=== PATIENT | female | born 1945 ===

== ENCOUNTER 2020-09-15 11:08 | Inpatient (IN) ==
[~2020-09-15 11:08] MED LIST: DIAZEPAM 5 MG TABLET PO ONE; MAGNESIUM SULF RIDER 2 GM in PREMIX 1 EACH IV PRN; POTASSIUM CHLORIDE RIDER 10 MEQ in PREMIX 1 EACH IV PRN; SODIUM CHLORIDE 0.9% 1,000 ML IV SCH; diphenhydrAMINE CAP 25 MG CAPSULE PO ONE
[2020-09-15] MEDS ORDERED: diphenhydrAMINE CAP 25 MG CAPSULE ONE (12:22)
[2020-09-15] MEDS ORDERED: DIAZEPAM 5 MG TABLET ONE (12:22)
[2020-09-15 12:39] LABS: Calcium 8.3 MG/DL (8.5-10.1); Osmolality,Calculated 288.5 MOS/KG (273-304)
[2020-09-15] MEDS ORDERED: MIDAZOLAM 2 MG/2 ML VIAL ONE (13:24)
[2020-09-15] MEDS ORDERED: fentaNYL 100 MCG/2 ML VIAL ONE (13:25)
[2020-09-15] MEDS ORDERED: LIDOCAINE 1% 20 ML VIAL ONE (13:28)
[2020-09-15] MEDS ORDERED: DEXTROSE 50% 25 GM/50 ML VIAL IV PRN (14:19)
[2020-09-15] MEDS ORDERED: GLUCAGON 1 MG VIAL IM PRN (14:19)
[2020-09-15] MEDS ORDERED: MAGNESIUM SULF RIDER 4 GM in PREMIX 1 EACH IV PRN (14:28)
[2020-09-15] MEDS ORDERED: ZALEPLON 5 MG CAPSULE PO PRN (14:28)
[2020-09-15] MEDS ORDERED: ONDANSETRON 4 MG/2 ML VIAL IV PRN (14:28)
[2020-09-15] MEDS ORDERED: MAGNESIUM SULF RIDER 2 GM in PREMIX 1 EACH IV PRN (14:28)
[2020-09-15] MEDS ORDERED: POTASSIUM CHLORIDE 20 MEQ TABLET PO PRN (14:28)
[2020-09-15] MEDS ORDERED: ALUMINUM/MAGNES/SIMETH MAX STR 30 ML UDCUP PO PRN (14:28)
[2020-09-15] MEDS ORDERED: ACETAMINOPHEN 325 MG TABLET PO PRN (14:28)
[2020-09-15] MEDS ORDERED: ALBUTEROL 2.5 MG/3 ML NEB RESP TX PRN (14:36)
[2020-09-15] MEDS ORDERED: INFLUENZA VIRUS VACCINE 0.5 ML SYRINGE IM ONE (15:25)
[2020-09-15] MEDS ORDERED: PNEUMOCOCCAL VACCINE (13 VALENT) 0.5 ML SYRINGE IM ONE (15:25)
[2020-09-15] MEDS: DEXTROSE 5% NACL 0.45% 1,000 ML IV SCH (16:51)
[2020-09-15] MEDS: INSULIN REGULAR 100 UNIT/ML SUBCUT SCH ×2 (17:28→23:04)
[2020-09-15] MEDS ORDERED: ENOXAPARIN 40 MG/0.4 ML SYRINGE SUBCUT SCH (21:00)
[2020-09-15] MEDS: ROSUVASTATIN 20 MG TABLET PO SCH (22:44)
[2020-09-15] MEDS: glyBURIDE 5 MG TABLET PO SCH (22:45)
[2020-09-15] MEDS: carvediloL 12.5 MG TABLET PO SCH (22:45)
[2020-09-15] MEDS: DOCUSATE SODIUM 100 MG CAPSULE PO SCH (22:45)
[2020-09-15] MEDS: OLOPATADINE 0.1% OPH SOLN 5 ML BOTTLE BOTH EYES SCH (22:46)
[2020-09-16] MEDS: DEXTROSE 5% NACL 0.45% 1,000 ML IV SCH ×3 (04:31→15:31)
[2020-09-16 05:40] LABS: Basophils % 0.3 % (0.0-0.8); Eosinophils # 0.2 10*3/uL (0.0-0.87); Eosinophils % 3.5 % (0.00-10.9); Hematocrit 34.1 VOL% (35.7-47.0); Hemoglobin 11.4 GM/DL (12.0-16.0); Immature Granulocytes % 0.2 %; Immature Granulocytes Absolute 0.01 #; Lymphocytes % 31.6 % (21.3-54.2); Mean Corpuscular HGB Conc 33.4 GM/DL (32-36); Mean Corpuscular Volume 83.6 FL (87-102); Mean Platelet Volume 9.9 FL (9.6-12.0); Monocytes % 7.4 % (1.7-12.7); Platelet Count 169 T/CUMM (130-400); Red Blood Count 4.08 MC/CUMM (3.8-5.5); Red Cell Distribution Width 13.2 % (9.3-17.3); White Blood Count 6.4 T/CUMM (4-12)
[2020-09-16 05:56] LABS: Alanine Aminotransferase 13 U/L (13-56); Albumin 2.1 G/DL (3.4-5.0); Alkaline Phosphatase 96 U/L (45-117); Aspartate Amino Transferase 17 U/L (0-37); Bilirubin,Total < 0.39 MG/DL (0.2-1.0); Blood Urea Nitrogen 33 MG/DL (7-18); Calcium 7.6 MG/DL (8.5-10.1); Estimated Glom Filtration Rate 32 ML/MIN; Glucose 201 MG/DL (74-106); Osmolality,Calculated 293.3 MOS/KG (273-304); Total Protein 5.3 G/DL (6.4-8.3)
[2020-09-16] MEDS: LEVOTHYROXINE 50 MCG TABLET PO SCH (06:04)
[2020-09-16] MEDS: INSULIN REGULAR 100 UNIT/ML SUBCUT SCH ×4 (08:15→22:11)
[2020-09-16] MEDS: lisinopriL 20 MG TABLET PO SCH (10:14)
[2020-09-16] MEDS: glyBURIDE 5 MG TABLET PO SCH ×2 (10:14→22:03)
[2020-09-16] MEDS: MONTELUKAST 10 MG TABLET PO SCH (10:14)
[2020-09-16] MEDS: PANTOPRAZOLE 40 MG TABLET PO SCH (10:14)
[2020-09-16] MEDS: carvediloL 12.5 MG TABLET PO SCH ×2 (10:14→22:03)
[2020-09-16] MEDS: DOCUSATE SODIUM 100 MG CAPSULE PO SCH ×2 (10:14→22:03)
[2020-09-16] MEDS: FUROSEMIDE 40 MG TABLET PO SCH (10:15)
[2020-09-16] MEDS: POTASSIUM CHLORIDE 20 MEQ TABLET PO SCH (10:15)
[2020-09-16] MEDS: FEXOFENADINE 180 MG TABLET PO SCH (10:16)
[2020-09-16] MEDS: OLOPATADINE 0.1% OPH SOLN 5 ML BOTTLE BOTH EYES SCH ×2 (10:16→22:11)
[2020-09-16] MEDS: NON-FORMULARY MEDICATION (Fluticasone Furoate-Vilanterol [Breo Ellipta] 200-25 mcg/dose Bl INH SCH (10:32)
[2020-09-16] MEDS ORDERED: GLUCAGON 1 MG VIAL IM PRN (10:49)
[2020-09-16] MEDS ORDERED: DEXTROSE 50% 25 GM/50 ML VIAL IV PRN (10:49)
[2020-09-16] MEDS ORDERED: VANCOMYCIN INJ 1,000 MG in SODIUM CHLORIDE 0.9% 250 ML IV ONE (11:05)
[2020-09-16 11:36] LABS: ABG Base Excess -1.6 MMOL/L (-2.5-2.5); ABG Oxygen Saturation 95.6 % (95-100); ABG PCO2 42.9 MM HG (35-48); ABG PH 7.355 (7.35-7.45); ABG PO2 78.5 MM HG (80-95); ABG TCO2 21.3 MMOL/L (23-27)
[2020-09-16] MEDS ORDERED: hydrALAZINE 20 MG/1 ML VIAL IV PRN (12:48)
[2020-09-16] MEDS: CHLORHEXIDINE 4% SOLN 118 ML BOTTLE TOP SCH ×2 (14:10→22:03)
[2020-09-16] MEDS: ASCORBIC ACID 500 MG TABLET PO SCH ×2 (14:33→22:03)
[2020-09-16] MEDS: hydrALAZINE 25 MG TABLET PO SCH ×3 (14:33→22:03)
[2020-09-16] MEDS ORDERED: ALPRAZolam 0.25 MG TABLET PO PRN (14:43)
[2020-09-16] MEDS ORDERED: PAPAVERINE 60 MG/2 ML VIAL ONE (14:44)
[2020-09-16] MEDS ORDERED: VANCOMYCIN 500 MG VIAL ONE (14:45)
[2020-09-16] MEDS ORDERED: VANCOMYCIN 1,000 MG VIAL ONE (14:45)
[2020-09-16] MEDS: ROSUVASTATIN 20 MG TABLET PO SCH (22:03)
[2020-09-16] MEDS: CHLORHEXIDINE 0.12% ORAL RINSE 60 ML BOTTLE SWISH/SPIT SCH (22:11)
[2020-09-17] MEDS: DEXTROSE 5% NACL 0.45% 1,000 ML IV SCH ×2 (00:36→05:36)
[2020-09-17] MEDS ORDERED: VANCOMYCIN INJ 1,000 MG in SODIUM CHLORIDE 0.9% 250 ML IV ONE (05:00)
[2020-09-17] MEDS ORDERED: SODIUM CHLORIDE 0.9% 1,000 ML IV SCH (05:00)
[2020-09-17] MEDS ORDERED: DIAZEPAM 5 MG TABLET PO ONE (06:00)
[2020-09-17] MEDS ORDERED: SUFentanil 250 MCG/5 ML AMP ONE (06:03)
[2020-09-17] MEDS ORDERED: MIDAZOLAM 10 MG/2 ML VIAL ONE (06:03)
[2020-09-17] MEDS: LEVOTHYROXINE 50 MCG TABLET PO SCH (06:28)
[2020-09-17] MEDS ORDERED: SODIUM BICARBONATE 50 MEQ/50 ML VIAL IV ONE ×3 (07:28→12:40)
[2020-09-17] MEDS ORDERED: POTASSIUM CHLORIDE RIDER 100 ML IV ONE (07:29)
[2020-09-17] MEDS ORDERED: PHENYLEPHRINE DRIP 40 MG/250 ML PREMIX IV ONE (07:29)
[2020-09-17] MEDS ORDERED: CALCIUM CHLORIDE 1,000 MG/10 ML SYRINGE IV ONE (07:29)
[2020-09-17] MEDS ORDERED: NITROPRUSSIDE 50 MG/2 ML VIAL ONE (07:29)
[2020-09-17 07:32] LABS: ABG Base Excess -3.3 MMOL/L (-2.5-2.5); ABG HCO3 21.7 MMOL/L (20-26); ABG PCO2 36.5 MM HG (35-48); ABG PH 7.376 (7.35-7.45); ABG TCO2 19.4 MMOL/L (23-27); Glucose Heart Surgery 150 MG/DL (74-106); Hematocrit Heart Surgery 31.9 PERCENT (37-47); Hemoglobin Heart Surgery 10.3 G/DL (12.0-16.0); Ionized Calcium Arterial 1.08 MMOL/L (1.21-1.46); PCO2 Patient Temp Arterial 36.5 MMHG; PH Patient Temp Arterial 7.376; Patient Temperature 37 CELCIUS; Potassium Heart/CVR 3.8 MMOL/L (3.5-5.1); Sodium Heart/CVR 139 MMOL/L (135-145)
[2020-09-17 08:05] LABS: Amorphous Crystals,Urine Occasional /HPF (Few); Bilirubin,Urine Negative (Negative); Blood, Urine Negative (Negative); Glucose,Urine (UA) 50 mg/dL (Negative); Ketones,Urine Negative (Negative); Mucus,Urine Occasional /LPF (Occasional); Nitrite,Urine Negative (Negative); Protein,Urine 100 MG/DL; RBC,Urine 2 /HPF (0-4); Urine Appearance Slightly Hazy (Clear); Urine Color Yellow (Yellow); Urine Specific Gravity 1.017 (1.001-1.035); Urine Urobilinogen < 2.0 EU/DL (0.2-1.0)
[2020-09-17] MEDS ORDERED: ePHEDrine 50 MG/ML VIAL ONE (08:40)
[2020-09-17] MEDS: FEXOFENADINE 180 MG TABLET PO SCH (09:03)
[2020-09-17] MEDS: carvediloL 12.5 MG TABLET PO SCH (09:03)
[2020-09-17] MEDS: glyBURIDE 5 MG TABLET PO SCH (09:03)
[2020-09-17] MEDS: DOCUSATE SODIUM 100 MG CAPSULE PO SCH (09:03)
[2020-09-17] MEDS: hydrALAZINE 25 MG TABLET PO SCH (09:03)
[2020-09-17] MEDS: INSULIN REGULAR 100 UNIT/ML SUBCUT SCH ×2 (09:03→13:18)
[2020-09-17] MEDS: CHLORHEXIDINE 0.12% ORAL RINSE 60 ML BOTTLE SWISH/SPIT SCH ×2 (09:04→21:50)
[2020-09-17] MEDS: CHLORHEXIDINE 4% SOLN 118 ML BOTTLE TOP SCH (09:04)
[2020-09-17] MEDS: ASCORBIC ACID 500 MG TABLET PO SCH (09:04)
[2020-09-17] MEDS: PANTOPRAZOLE 40 MG TABLET PO SCH (09:04)
[2020-09-17] MEDS: NON-FORMULARY MEDICATION (Fluticasone Furoate-Vilanterol [Breo Ellipta] 200-25 mcg/dose Bl INH SCH (09:04)
[2020-09-17] MEDS: OLOPATADINE 0.1% OPH SOLN 5 ML BOTTLE BOTH EYES SCH (09:04)
[2020-09-17] MEDS: POTASSIUM CHLORIDE 20 MEQ TABLET PO SCH (09:04)
[2020-09-17] MEDS: MONTELUKAST 10 MG TABLET PO SCH (09:04)
[2020-09-17] MEDS: lisinopriL 20 MG TABLET PO SCH (09:04)
[2020-09-17] MEDS: FUROSEMIDE 40 MG TABLET PO SCH (09:04)
[2020-09-17] MEDS ORDERED: CALCIUM CHLORIDE 1,000 MG/10 ML VIAL IV ONE ×2 (09:08→12:40)
[2020-09-17] MEDS ORDERED: HEPARIN 10,000 UNIT/10 ML VIAL ONE ×2 (09:08→10:34)
[2020-09-17] MEDS ORDERED: AMINOCAPROIC ACID 5,000 MG/20 ML VIAL ONE (09:08)
[2020-09-17] MEDS ORDERED: ALBUMIN 5% 12.5 GM/250 ML VIAL IV ONE (09:08)
[2020-09-17] MEDS ORDERED: VECURONIUM 10 MG VIAL IV ONE (09:08)
[2020-09-17] MEDS ORDERED: SODIUM CHLORIDE 0.9% 250 ML IV ONE ×2 (09:08→12:40)
[2020-09-17] MEDS ORDERED: SODIUM CHLORIDE 0.9% 100 ML IV ONE (09:08)
[2020-09-17] MEDS ORDERED: HEPARIN/NACL 0.9% 2 UNITS/ML 500 ML IV ONE ×2 (09:08→12:28)
[2020-09-17] MEDS ORDERED: LIDOCAINE 2% 5 ML VIAL ONE ×2 (09:08→10:33)
[2020-09-17] MEDS ORDERED: PHENYLEPHRINE DRIP 20 MG/250 ML PREMIX IV ONE (09:08)
[2020-09-17] MEDS ORDERED: LACTATED RINGERS 1,000 ML IV ONE (09:08)
[2020-09-17] MEDS ORDERED: SODIUM CHLORIDE 0.9% 1,000 ML IV ONE (09:09)
[2020-09-17 09:17] LABS: PCO2 Patient Temp Venous 31.3 MM HG; PH Patient Temp Venous 7.438; PO2 Patient Temp Venous 40.5 MM HG; Potassium Heart/CVR 4.8 MMOL/L (3.5-5.1); VBG Base Excess -2.4 MEQ/L (0-4); VBG HCO3 22.2 MEQ/L (24-28); VBG Oxygen Saturation 85.7 %; VBG PCO2 36.2 MMHG (41-51); VBG PH 7.395; VBG PO2 49.6 MMHG (17-40)
[2020-09-17 09:19] LABS: Hematocrit Heart Surgery 17.9 PERCENT (37-47); Hemoglobin Heart Surgery 5.7 G/DL (12.0-16.0)
[2020-09-17 09:45] LABS: Hematocrit Heart Surgery 22.9 PERCENT (37-47); Hemoglobin Heart Surgery 7.3 G/DL (12.0-16.0); PCO2 Patient Temp Venous 30.6 MM HG; PH Patient Temp Venous 7.495; PO2 Patient Temp Venous 42.6 MM HG; Potassium Heart/CVR 4.7 MMOL/L (3.5-5.1); VBG Base Excess 0.7 MEQ/L (0-4); VBG Oxygen Saturation 90.1 %; VBG PCO2 35.3 MMHG (41-51); VBG PH 7.45; VBG PO2 52.2 MMHG (17-40)
[2020-09-17 10:19] LABS: Hematocrit Heart Surgery 24.2 PERCENT (37-47); Hemoglobin Heart Surgery 7.8 G/DL (12.0-16.0); PCO2 Patient Temp Venous 32.1 MM HG; PH Patient Temp Venous 7.474; PO2 Patient Temp Venous 38.2 MM HG; VBG Base Excess 0.3 MEQ/L (0-4); VBG HCO3 24.5 MEQ/L (24-28); VBG Oxygen Saturation 78.4 %; VBG PCO2 32.1 MMHG (41-51); VBG PH 7.474; VBG PO2 38.2 MMHG (17-40)
[2020-09-17] MEDS ORDERED: MANNITOL 100 GM/500 ML BAG IV ONE (10:33)
[2020-09-17] MEDS ORDERED: methylPREDNISolone SOD SUC 1,000 MG/8 ML VIAL ONE (10:34)
[2020-09-17] MEDS ORDERED: DEXTROSE 5% KCL 20 MEQ 20 MEQ/1,000 ML BAG IV ONE (10:34)
[2020-09-17] MEDS ORDERED: FUROSEMIDE 20 MG/2 ML VIAL ONE (10:34)
[2020-09-17] MEDS ORDERED: PROTAMINE SULFATE 250 MG/25 ML VIAL IV ONE (10:34)
[2020-09-17] MEDS ORDERED: MAGNESIUM SULFATE 5 GM/10 ML VIAL IV ONE (10:34)
[2020-09-17] MEDS ORDERED: ALBUMIN 25% 25 GM/100 ML VIAL IV ONE (10:34)
[2020-09-17 10:48] LABS: Hematocrit Heart Surgery 25.1 PERCENT (37-47); Hemoglobin Heart Surgery 8.1 G/DL (12.0-16.0); PCO2 Patient Temp Venous 37.2 MM HG; PH Patient Temp Venous 7.388; PO2 Patient Temp Venous 45.4 MM HG; Potassium Heart/CVR 4.8 MMOL/L (3.5-5.1); VBG Base Excess -2.2 MEQ/L (0-4); VBG HCO3 22.3 MEQ/L (24-28); VBG Oxygen Saturation 81.3 %; VBG PCO2 37.2 MMHG (41-51); VBG PH 7.388; VBG PO2 45.4 MMHG (17-40)
[2020-09-17 11:42] LABS: ABG Base Excess -1.6 MMOL/L (-2.5-2.5); ABG HCO3 22.6 MMOL/L (20-26); ABG Oxygen Saturation 98.8 % (95-100); ABG PCO2 35.5 MM HG (35-48); ABG PH 7.422 (7.35-7.45); ABG PO2 333.8 MM HG (80-95); ABG TCO2 23.7 MMOL/L (23-27); Glucose Heart Surgery 251 MG/DL (74-106); Hemoglobin Heart Surgery 8.3 G/DL (12.0-16.0); Ionized Calcium Arterial 1.09 MMOL/L (1.21-1.46); PCO2 Patient Temp Arterial 35.5 MMHG; PH Patient Temp Arterial 7.422; PO2 Patient Temp Arterial 333.8 MM HG; Patient Temperature 37 CELCIUS; Potassium Heart/CVR 4.4 MMOL/L (3.5-5.1); Sodium Heart/CVR 133 MMOL/L (135-145)
[2020-09-17] MEDS ORDERED: DEXTROSE 50% 25 GM/50 ML VIAL IV PRN ×2 (11:58)
[2020-09-17] MEDS ORDERED: CALCIUM CHLORIDE 1,000 MG/10 ML SYRINGE IV PRN (11:58)
[2020-09-17] MEDS ORDERED: INSULIN REGULAR 100 UNIT/ML IV ONE (11:58)
[2020-09-17] MEDS ORDERED: NITROPRUSSIDE 100 MG in DEXTROSE 5% 250 ML IV PRN (11:58)
[2020-09-17] MEDS ORDERED: POTASSIUM CHLORIDE RIDER 10 MEQ in PREMIX 1 EACH IV PRN (11:58)
[2020-09-17] MEDS ORDERED: INSULIN REGULAR 100 UNIT/ML IV PRN (11:58)
[2020-09-17] MEDS ORDERED: ONDANSETRON 4 MG/2 ML VIAL IV PRN (11:58)
[2020-09-17] MEDS ORDERED: MORPHINE 4 MG/1 ML VIAL IV PRN (11:58)
[2020-09-17] MEDS ORDERED: VECURONIUM 10 MG VIAL IV PRN ×2 (11:58)
[2020-09-17] MEDS ORDERED: PHENYLEPHRINE DRIP 40 MG/250 ML PREMIX IV PRN (11:58)
[2020-09-17] MEDS ORDERED: MAGNESIUM SULF RIDER 2 GM in PREMIX 1 EACH IV PRN (11:58)
[2020-09-17] MEDS ORDERED: MIDAZOLAM 2 MG/2 ML VIAL IV PRN (11:58)
[2020-09-17] MEDS ORDERED: MAGNESIUM SULF RIDER 4 GM in PREMIX 1 EACH IV PRN (11:58)
[2020-09-17] MEDS ORDERED: LACTATED RINGERS 250 ML IV PRN (11:58)
[2020-09-17] MEDS ORDERED: CHLORHEXIDINE 4% SOLN 118 ML BOTTLE TOP PRN (11:58)
[2020-09-17] MEDS ORDERED: DOBUTamine 500 MG/250 ML PREMIX IV ONE ×2 (12:00→12:40)
[2020-09-17] MEDS ORDERED: MIDAZOLAM 2 MG/2 ML VIAL ONE (12:11)
[2020-09-17] MEDS: SODIUM CHLORIDE 0.45% 1,000 ML IV SCH ×2 (12:21)
[2020-09-17] MEDS: DOBUTamine 500 MG/250 ML PREMIX IV SCH (12:21)
[2020-09-17] MEDS ORDERED: PROTAMINE SULFATE 50 MG/5 ML VIAL IV ONE ×2 (12:38→12:41)
[2020-09-17] MEDS ORDERED: SEVOFLURANE 1 UNIT/15 MINUTE INH ONE (12:40)
[2020-09-17] MEDS ORDERED: AMIODARONE 150 MG/3 ML VIAL ONE (12:40)
[2020-09-17] MEDS ORDERED: EPINEPHrine 1 MG/ML VIAL ONE (12:40)
[2020-09-17 12:49] LABS: ABG Base Excess -0.9 MMOL/L (-2.5-2.5); ABG HCO3 23.6 MMOL/L (20-26); ABG Oxygen Saturation 98.9 % (95-100); ABG PCO2 31.6 MM HG (35-48); ABG PH 7.458 (7.35-7.45); ABG TCO2 20.7 MMOL/L (23-27); Glucose Heart Surgery 248 MG/DL (74-106); Hemoglobin Heart Surgery 8.4 G/DL (12.0-16.0); Potassium Heart/CVR 4.2 MMOL/L (3.5-5.1)
[2020-09-17 12:58] LABS: Basophils % 0.1 % (0.0-0.8); Eosinophils # 0.1 10*3/uL (0.0-0.87); Eosinophils % 0.9 % (0.00-10.9); Hemoglobin 8.3 GM/DL (12.0-16.0); Immature Granulocytes % 0.5 %; Immature Granulocytes Absolute 0.05 #; Lymphocytes # 2.8 10*3/uL (1.4-4.0); Lymphocytes % 26.3 % (21.3-54.2); Mean Corpuscular HGB Conc 34.6 GM/DL (32-36); Mean Corpuscular Volume 83.9 FL (87-102); Mean Platelet Volume 10.2 FL (9.6-12.0); Monocytes % 5.5 % (1.7-12.7); Neutrophils % 66.7 % (38.7-73.9); Platelet Count 80 T/CUMM (130-400); Red Blood Count 2.86 MC/CUMM (3.8-5.5); Red Cell Distribution Width 13.8 % (9.3-17.3); White Blood Count 10.7 T/CUMM (4-12)
[2020-09-17 13:15] LABS: INR 1.7; PT Patient Result 17.6 SECS (9.8-11.9)
[2020-09-17] MEDS: INSULIN REGULAR DRIP 100 ML IV SCH (13:15)
[2020-09-17 13:26] LABS: Albumin 2.2 G/DL (3.4-5.0); Osmolality,Calculated 296.1 MOS/KG (273-304); Total Protein 4.1 G/DL (6.4-8.3)
[2020-09-17] MEDS: POTASSIUM CHLORIDE RIDER 20 MEQ in PREMIX 1 EACH IV PRN ×2 (14:00→18:28)
[2020-09-17 14:01] LABS: CKMB % 5.4 %
[2020-09-17 14:03] LABS: Troponin I 6.76 NG/ML (0.00-0.045)
[2020-09-17 15:03] LABS: ABG Base Excess -2.3 MMOL/L (-2.5-2.5); ABG HCO3 22.4 MMOL/L (20-26); ABG Oxygen Saturation 96.4 % (95-100); ABG PCO2 30.1 MM HG (35-48); ABG PH 7.446 (7.35-7.45); ABG PO2 76.2 MM HG (80-95); ABG TCO2 18.3 MMOL/L (23-27); Glucose Heart Surgery 232 MG/DL (74-106); Hematocrit Heart Surgery 36.6 PERCENT (37-47); Hemoglobin Heart Surgery 11.9 G/DL (12.0-16.0); Potassium Heart/CVR 4.5 MMOL/L (3.5-5.1)
[2020-09-17] MEDS: ALBUMIN 5% 12.5 GM in PREMIX 1 EACH IV PRN ×3 (15:18→16:55)
[2020-09-17 15:34] LABS: Hematocrit Heart Surgery 33.2 PERCENT (37-47); Hemoglobin Heart Surgery 10.8 G/DL (12.0-16.0); PCO2 Patient Temp Venous 35.6 MM HG; PH Patient Temp Venous 7.387; PO2 Patient Temp Venous 38.4 MM HG; Potassium Heart/CVR 4.1 MMOL/L (3.5-5.1); VBG Base Excess -3.1 MEQ/L (0-4); VBG HCO3 21.4 MEQ/L (24-28); VBG Oxygen Saturation 70.9 %; VBG PCO2 35.6 MMHG (41-51); VBG PH 7.387; VBG PO2 38.4 MMHG (17-40)
[2020-09-17] MEDS ORDERED: NITROGLYCERIN DRIP 50 MG/250 ML BOTTLE IV ONE (15:55)
[2020-09-17] MEDS: NITROGLYCERIN DRIP 50 MG/250 ML BOTTLE IV PRN (16:12)
[2020-09-17 18:17] LABS: ABG Base Excess -3.7 MMOL/L (-2.5-2.5); ABG HCO3 19.6 MMOL/L (20-26); ABG Oxygen Saturation 96.4 % (95-100); ABG PH 7.434 (7.35-7.45); ABG PO2 89.7 MM HG (80-95); ABG TCO2 20.6 MMOL/L (23-27); Glucose Heart Surgery 144 MG/DL (74-106); Hemoglobin Heart Surgery 10.6 G/DL (12.0-16.0); Potassium Heart/CVR 3.9 MMOL/L (3.5-5.1)
[2020-09-17] MEDS: MIDAZOLAM 10 MG/2 ML VIAL IV PRN ×2 (19:54→21:51)
[2020-09-17 20:23] LABS: ABG Base Excess -2.2 MMOL/L (-2.5-2.5); ABG HCO3 22.6 MMOL/L (20-26); ABG Oxygen Saturation 97.2 % (95-100); ABG PCO2 31.5 MM HG (35-48); ABG PH 7.438 (7.35-7.45); ABG PO2 83.6 MM HG (80-95); ABG TCO2 19.3 MMOL/L (23-27); Glucose Heart Surgery 108 MG/DL (74-106); Hematocrit Heart Surgery 30.6 PERCENT (37-47); Hemoglobin Heart Surgery 9.9 G/DL (12.0-16.0)
[2020-09-17 20:56] LABS: CKMB % 6.3 %
[2020-09-17 20:59] LABS: Troponin I 57.2 NG/ML (0.00-0.045)
[2020-09-17] MEDS: VANCOMYCIN INJ 1,000 MG in SODIUM CHLORIDE 0.9% 250 ML IV SCH (23:17)
[2020-09-18] MEDS: MIDAZOLAM 10 MG/2 ML VIAL IV PRN ×2 (00:15→05:10)
[2020-09-18] MEDS: POTASSIUM CHLORIDE RIDER 20 MEQ in PREMIX 1 EACH IV PRN ×3 (00:25→05:21)
[2020-09-18] MEDS ORDERED: FUROSEMIDE 40 MG/4 ML VIAL IV ONE ×3 (00:59→23:39)
[2020-09-18] MEDS: MORPHINE 10 MG/1 ML VIAL IV PRN ×2 (01:28→09:07)
[2020-09-18 04:29] LABS: ABG HCO3 19.2 MMOL/L (20-26); ABG Oxygen Saturation 95.8 % (95-100); ABG PCO2 25.8 MM HG (35-48); ABG PO2 79.1 MM HG (80-95); Glucose Heart Surgery 98 MG/DL (74-106); Hemoglobin Heart Surgery 10.5 G/DL (12.0-16.0); Potassium Heart/CVR 3.8 MMOL/L (3.5-5.1)
[2020-09-18 04:52] LABS: Basophils % 0.2 % (0.0-0.8); Hematocrit 29.4 VOL% (35.7-47.0); Immature Granulocytes % 0.5 %; Immature Granulocytes Absolute 0.06 #; Lymphocytes # 1.2 10*3/uL (1.4-4.0); Lymphocytes % 9.5 % (21.3-54.2); Mean Corpuscular Volume 80.8 FL (87-102); Mean Platelet Volume 10.1 FL (9.6-12.0); Monocytes % 4.5 % (1.7-12.7); Neutrophils % 85.3 % (38.7-73.9); Platelet Count 73 T/CUMM (130-400); Red Blood Count 3.64 MC/CUMM (3.8-5.5); Red Cell Distribution Width 15.3 % (9.3-17.3)
[2020-09-18 05:13] LABS: Band Neutrophils 1 % (0-10); Lymphocytes 11 % (20-55); Platelet Estimate Decreased; Segmented Neutrophils 87 % (50-85); Total Cells Counted 100
[2020-09-18] MEDS: NITROGLYCERIN DRIP 50 MG/250 ML BOTTLE IV PRN (05:23)
[2020-09-18 05:33] LABS: Albumin 2.8 G/DL (3.4-5.0); Bilirubin,Direct 0.27 MG/DL (0.0-0.20); Bilirubin,Total 0.7 MG/DL (0.2-1.0); Calcium 8.7 MG/DL (8.5-10.1); Osmolality,Calculated 287.3 MOS/KG (273-304); Total Protein 4.7 G/DL (6.4-8.3)
[2020-09-18 05:50] LABS: CKMB % 9.7 %
[2020-09-18 05:55] LABS: Troponin I 73.2 NG/ML (0.00-0.045)
[2020-09-18] MEDS: ALBUMIN 5% 12.5 GM in PREMIX 1 EACH IV PRN (06:15)
[2020-09-18 08:02] LABS: ABG Base Excess -2.5 MMOL/L (-2.5-2.5); ABG HCO3 22.4 MMOL/L (20-26); ABG Oxygen Saturation 98.7 % (95-100); ABG PCO2 30.8 MM HG (35-48); ABG PH 7.439 (7.35-7.45); ABG TCO2 18.7 MMOL/L (23-27); Glucose Heart Surgery 111 MG/DL (74-106); Hematocrit Heart Surgery 33.3 PERCENT (37-47); Hemoglobin Heart Surgery 10.8 G/DL (12.0-16.0); Potassium Heart/CVR 4.6 MMOL/L (3.5-5.1)
[2020-09-18] MEDS: CHLORHEXIDINE 0.12% ORAL RINSE 60 ML BOTTLE SWISH/SPIT SCH ×2 (08:59→20:53)
[2020-09-18 09:21] LABS: Hematocrit Heart Surgery 32.6 PERCENT (37-47); Hemoglobin Heart Surgery 10.6 G/DL (12.0-16.0); PCO2 Patient Temp Venous 36.1 MM HG; PH Patient Temp Venous 7.396; PO2 Patient Temp Venous 44.3 MM HG; Potassium Heart/CVR 4.5 MMOL/L (3.5-5.1); VBG Base Excess -2.2 MEQ/L (0-4); VBG HCO3 22.2 MEQ/L (24-28); VBG Oxygen Saturation 78.9 %; VBG PCO2 36.1 MMHG (41-51); VBG PH 7.396; VBG PO2 44.3 MMHG (17-40)
[2020-09-18 11:48] LABS: ABG Base Excess -2.2 MMOL/L (-2.5-2.5); ABG HCO3 22.6 MMOL/L (20-26); ABG Oxygen Saturation 99.3 % (95-100); ABG PCO2 31.3 MM HG (35-48); ABG PH 7.438 (7.35-7.45); ABG TCO2 18.9 MMOL/L (23-27); Glucose Heart Surgery 93 MG/DL (74-106); Potassium Heart/CVR 4.5 MMOL/L (3.5-5.1)
[2020-09-18 12:42] LABS: CKMB % 9.3 %
[2020-09-18] MEDS: VANCOMYCIN INJ 1,000 MG in SODIUM CHLORIDE 0.9% 250 ML IV SCH ×2 (13:01→23:49)
[2020-09-18] MEDS: INSULIN REGULAR DRIP 100 ML IV SCH (13:32)
[2020-09-18 14:07] LABS: ABG Base Excess -2.9 MMOL/L (-2.5-2.5); ABG Oxygen Saturation 99.7 % (95-100); ABG PCO2 33.8 MM HG (35-48); ABG PH 7.404 (7.35-7.45); ABG TCO2 19.1 MMOL/L (23-27); Glucose Heart Surgery 99 MG/DL (74-106); Hematocrit Heart Surgery 32.9 PERCENT (37-47); Hemoglobin Heart Surgery 10.7 G/DL (12.0-16.0); Potassium Heart/CVR 4.4 MMOL/L (3.5-5.1)
[2020-09-18 15:48] LABS: ABG Base Excess -4.8 MMOL/L (-2.5-2.5); ABG HCO3 20.4 MMOL/L (20-26); ABG PCO2 42.9 MM HG (35-48); ABG PH 7.306 (7.35-7.45); ABG PO2 81.5 MM HG (80-95); ABG TCO2 19.6 MMOL/L (23-27); Glucose Heart Surgery 128 MG/DL (74-106); Hematocrit Heart Surgery 32.1 PERCENT (37-47); Hemoglobin Heart Surgery 10.4 G/DL (12.0-16.0); Potassium Heart/CVR 4.7 MMOL/L (3.5-5.1)
[2020-09-18] MEDS: INSULIN REGULAR 100 UNIT/ML SUBCUT SCH ×2 (16:18→19:47)
[2020-09-18] MEDS: SODIUM CHLORIDE 0.45% 1,000 ML IV SCH ×2 (16:44→16:45)
[2020-09-18] MEDS: DOBUTamine 500 MG/250 ML PREMIX IV SCH (16:45)
[2020-09-18 19:12] LABS: CKMB % 10.2 %
[2020-09-18 19:13] LABS: Troponin I 91.2 NG/ML (0.00-0.045)
[2020-09-19] MEDS ORDERED: HEPARIN/NACL 0.9% 2 UNITS/ML 500 ML IV ONE (04:21)
[2020-09-19 04:32] LABS: ABG Base Excess -6.3 MMOL/L (-2.5-2.5); ABG HCO3 20.3 MMOL/L (20-26); ABG Oxygen Saturation 96.9 % (95-100); ABG PCO2 44.3 MM HG (35-48); ABG PH 7.278 (7.35-7.45); ABG TCO2 21.6 MMOL/L (23-27); Glucose Heart Surgery 134 MG/DL (74-106); Hemoglobin Heart Surgery 11.3 G/DL (12.0-16.0)
[2020-09-19] MEDS: INSULIN REGULAR 100 UNIT/ML SUBCUT SCH ×6 (04:35→20:15)
[2020-09-19 04:41] LABS: Basophils % 0.1 % (0.0-0.8); Hematocrit 33.7 VOL% (35.7-47.0); Hemoglobin 10.8 GM/DL (12.0-16.0); Immature Granulocytes % 0.4 %; Immature Granulocytes Absolute 0.05 #; Lymphocytes # 1.2 10*3/uL (1.4-4.0); Lymphocytes % 8.3 % (21.3-54.2); Mean Corpuscular Volume 87.1 FL (87-102); Mean Platelet Volume 10.8 FL (9.6-12.0); Monocytes % 7.1 % (1.7-12.7); Neutrophils % 84.1 % (38.7-73.9); Platelet Count 60 T/CUMM (130-400); Red Blood Count 3.87 MC/CUMM (3.8-5.5); Red Cell Distribution Width 16.1 % (9.3-17.3)
[2020-09-19 05:00] LABS: Hypochromasia Slight; Microcytosis Slight; Platelet Estimate Decreased
[2020-09-19 05:17] LABS: Albumin 2.8 G/DL (3.4-5.0); Bilirubin,Direct 0.19 MG/DL (0.0-0.20); Bilirubin,Total 0.5 MG/DL (0.2-1.0); Osmolality,Calculated 283.8 MOS/KG (273-304); Total Protein 5.3 G/DL (6.4-8.3)
[2020-09-19 05:37] LABS: CKMB % 11.3 %
[2020-09-19 06:43] LABS: Troponin I 72.9 NG/ML (0.00-0.045)
[2020-09-19] MEDS: CHLORHEXIDINE 0.12% ORAL RINSE 60 ML BOTTLE SWISH/SPIT SCH ×2 (08:14→21:28)
[2020-09-19] MEDS: VANCOMYCIN INJ 1,000 MG in SODIUM CHLORIDE 0.9% 250 ML IV SCH (12:50)
[2020-09-19] MEDS: MORPHINE 10 MG/1 ML VIAL IV PRN (19:24)
[2020-09-20] MEDS: INSULIN REGULAR 100 UNIT/ML SUBCUT SCH ×6 (00:03→20:54)
[2020-09-20 04:38] LABS: ABG Base Excess -4.5 MMOL/L (-2.5-2.5); ABG HCO3 20.6 MMOL/L (20-26); ABG Oxygen Saturation 92.5 % (95-100); ABG PCO2 42.1 MM HG (35-48); ABG PH 7.316 (7.35-7.45); ABG PO2 66.2 MM HG (80-95); ABG TCO2 19.6 MMOL/L (23-27); Glucose Heart Surgery 116 MG/DL (74-106); Hematocrit Heart Surgery 32.6 PERCENT (37-47); Hemoglobin Heart Surgery 10.6 G/DL (12.0-16.0); Potassium Heart/CVR 4.2 MMOL/L (3.5-5.1)
[2020-09-20 04:39] LABS: Basophils % 0.1 % (0.0-0.8); Eosinophils % 0.2 % (0.00-10.9); Hematocrit 32.9 VOL% (35.7-47.0); Hemoglobin 10.5 GM/DL (12.0-16.0); Immature Granulocytes % 0.7 %; Immature Granulocytes Absolute 0.08 #; Lymphocytes # 1.3 10*3/uL (1.4-4.0); Lymphocytes % 10.4 % (21.3-54.2); Mean Corpuscular HGB Conc 31.9 GM/DL (32-36); Mean Corpuscular Volume 87.7 FL (87-102); Monocytes % 6.8 % (1.7-12.7); Neutrophils % 81.8 % (38.7-73.9); Red Blood Count 3.75 MC/CUMM (3.8-5.5); Red Cell Distribution Width 15.5 % (9.3-17.3); White Blood Count 12.3 T/CUMM (4-12)
[2020-09-20] MEDS: SODIUM CHLORIDE 0.45% 1,000 ML IV SCH ×2 (04:41)
[2020-09-20] MEDS: DOBUTamine 500 MG/250 ML PREMIX IV SCH (04:41)
[2020-09-20 04:58] LABS: Albumin 2.5 G/DL (3.4-5.0); Bilirubin,Direct 0.3 MG/DL (0.0-0.20); Bilirubin,Total 0.6 MG/DL (0.2-1.0); Calcium 7.8 MG/DL (8.5-10.1); Osmolality,Calculated 291.4 MOS/KG (273-304); Total Protein 5.5 G/DL (6.4-8.3)
[2020-09-20 05:01] LABS: Platelet Count 61 T/CUMM (130-400)
[2020-09-20 05:12] LABS: Hypochromasia 1+; Ovalocytes 1+; Platelet Estimate Decreased
[2020-09-20] MEDS: CHLORHEXIDINE 0.12% ORAL RINSE 60 ML BOTTLE SWISH/SPIT SCH ×2 (10:38→20:54)
[2020-09-20] MEDS ORDERED: oxyCODONE/ACETAMINOPHEN 5-325 MG TABLET PO PRN (11:20)
[2020-09-21] MEDS: INSULIN REGULAR 100 UNIT/ML SUBCUT SCH ×4 (01:27→12:39)
[2020-09-21 03:39] LABS: Basophils % 0.2 % (0.0-0.8); Eosinophils # 0.2 10*3/uL (0.0-0.87); Eosinophils % 1.6 % (0.00-10.9); Hematocrit 31.2 VOL% (35.7-47.0); Immature Granulocytes % 0.8 %; Immature Granulocytes Absolute 0.08 #; Lymphocytes # 1.3 10*3/uL (1.4-4.0); Lymphocytes % 12.4 % (21.3-54.2); Mean Corpuscular HGB Conc 32.1 GM/DL (32-36); Mean Corpuscular Volume 87.4 FL (87-102); Mean Platelet Volume 10.4 FL (9.6-12.0); Platelet Count 75 T/CUMM (130-400); Red Blood Count 3.57 MC/CUMM (3.8-5.5); Red Cell Distribution Width 15.1 % (9.3-17.3); White Blood Count 10.2 T/CUMM (4-12)
[2020-09-21 03:56] LABS: Calcium 7.7 MG/DL (8.5-10.1); Osmolality,Calculated 290.3 MOS/KG (273-304)
[2020-09-21 04:09] LABS: Hypochromasia Slight; Platelet Estimate Decreased
[2020-09-21] MEDS: DOBUTamine 500 MG/250 ML PREMIX IV SCH (04:38)
[2020-09-21] MEDS: SODIUM CHLORIDE 0.45% 1,000 ML IV SCH ×2 (05:17)
[2020-09-21] MEDS ORDERED: LOSARTAN 25 MG TABLET PO SCH (09:00)
[2020-09-21] MEDS: ASCORBIC ACID 500 MG TABLET PO SCH ×2 (10:11→22:11)
[2020-09-21] MEDS: CHLORHEXIDINE 0.12% ORAL RINSE 60 ML BOTTLE SWISH/SPIT SCH ×2 (10:15→22:11)
[2020-09-21] MEDS ORDERED: MAGNESIUM SULF RIDER 4 GM in PREMIX 1 EACH IV PRN (12:38)
[2020-09-21] MEDS ORDERED: DEXTROSE 50% 25 GM/50 ML VIAL IV PRN (12:38)
[2020-09-21] MEDS ORDERED: GLUCAGON 1 MG VIAL IM PRN (12:38)
[2020-09-21] MEDS ORDERED: MAGNESIUM HYDROXIDE SUSP 30 ML UDCUP PO PRN (12:38)
[2020-09-21] MEDS ORDERED: MAGNESIUM SULF RIDER 2 GM in PREMIX 1 EACH IV PRN (12:38)
[2020-09-21] MEDS ORDERED: POTASSIUM CHLORIDE 20 MEQ TABLET PO PRN (12:38)
[2020-09-21] MEDS ORDERED: ALUMINUM/MAGNES/SIMETH MAX STR 30 ML UDCUP PO PRN (12:38)
[2020-09-21] MEDS ORDERED: SODIUM CHLOR 0.45% KCL 20 MEQ 20 MEQ/1,000 ML BAG IV SCH (12:38)
[2020-09-21] MEDS ORDERED: ONDANSETRON 4 MG/2 ML VIAL IV PRN (12:38)
[2020-09-21] MEDS: hydrALAZINE 20 MG/1 ML VIAL IV PRN (13:18)
[2020-09-21] MEDS: ROSUVASTATIN 20 MG TABLET PO SCH (22:11)
[2020-09-22] MEDS: hydrALAZINE 20 MG/1 ML VIAL IV PRN (04:09)
[2020-09-22 05:44] LABS: Basophils % 0.2 % (0.0-0.8); Eosinophils # 0.3 10*3/uL (0.0-0.87); Eosinophils % 2.6 % (0.00-10.9); Hematocrit 33.7 VOL% (35.7-47.0); Hemoglobin 10.8 GM/DL (12.0-16.0); Immature Granulocytes % 0.9 %; Immature Granulocytes Absolute 0.09 #; Lymphocytes % 10.7 % (21.3-54.2); Mean Corpuscular Volume 87.8 FL (87-102); Mean Platelet Volume 10.7 FL (9.6-12.0); Monocytes % 7.6 % (1.7-12.7); Platelet Count 114 T/CUMM (130-400); Red Blood Count 3.84 MC/CUMM (3.8-5.5); Red Cell Distribution Width 14.8 % (9.3-17.3); White Blood Count 9.7 T/CUMM (4-12)
[2020-09-22] MEDS ORDERED: FUROSEMIDE 40 MG/4 ML VIAL IV ONE (06:00)
[2020-09-22 06:15] LABS: Calcium 7.9 MG/DL (8.5-10.1)
[2020-09-22 06:19] LABS: Albumin 2.1 G/DL (3.4-5.0); Bilirubin,Direct 0.48 MG/DL (0.0-0.20); Bilirubin,Indirect 0.4 MG/DL (0.0-1.0); Bilirubin,Total 0.9 MG/DL (0.2-1.0); Calcium 7.6 MG/DL (8.5-10.1); Osmolality,Calculated 292.1 MOS/KG (273-304); Total Protein 5.6 G/DL (6.4-8.3); Troponin I 35.4 NG/ML (0.00-0.045)
[2020-09-22] MEDS: DOCUSATE SODIUM 100 MG CAPSULE PO SCH (09:32)
[2020-09-22] MEDS: CHLORHEXIDINE 0.12% ORAL RINSE 60 ML BOTTLE SWISH/SPIT SCH ×2 (09:33→21:41)
[2020-09-22] MEDS: hydrALAZINE 25 MG TABLET PO SCH ×3 (09:33→21:41)
[2020-09-22] MEDS: ASCORBIC ACID 500 MG TABLET PO SCH ×2 (09:33→21:41)
[2020-09-22] MEDS: CLOPIDOGREL 75 MG TABLET PO SCH (09:33)
[2020-09-22] MEDS: FERROUS SULFATE 325 MG TABLET PO SCH (09:33)
[2020-09-22] MEDS: LOSARTAN 25 MG TABLET PO SCH ×2 (09:33→21:41)
[2020-09-22] MEDS: PANTOPRAZOLE 40 MG TABLET PO SCH (09:33)
[2020-09-22] MEDS ORDERED: DEXTROSE 50% 25 GM/50 ML VIAL IV PRN (11:09)
[2020-09-22] MEDS: ROSUVASTATIN 20 MG TABLET PO SCH (21:41)
[2020-09-23 05:32] LABS: Basophils % 0.1 % (0.0-0.8); Eosinophils # 0.3 10*3/uL (0.0-0.87); Eosinophils % 3.4 % (0.00-10.9); Hemoglobin 10.4 GM/DL (12.0-16.0); Immature Granulocytes % 0.9 %; Immature Granulocytes Absolute 0.07 #; Lymphocytes % 12.8 % (21.3-54.2); Mean Corpuscular HGB Conc 33.5 GM/DL (32-36); Mean Corpuscular Volume 84.9 FL (87-102); Mean Platelet Volume 10.1 FL (9.6-12.0); Monocytes % 8.5 % (1.7-12.7); Neutrophils % 74.3 % (38.7-73.9); Platelet Count 150 T/CUMM (130-400); Red Blood Count 3.65 MC/CUMM (3.8-5.5); White Blood Count 8.1 T/CUMM (4-12)
[2020-09-23 05:52] LABS: Calcium 7.8 MG/DL (8.5-10.1); Osmolality,Calculated 299.7 MOS/KG (273-304)
[2020-09-23 05:57] LABS: Albumin 1.9 G/DL (3.4-5.0); Bilirubin,Direct 0.39 MG/DL (0.0-0.20); Bilirubin,Indirect 0.5 MG/DL (0.0-1.0); Bilirubin,Total 0.9 MG/DL (0.2-1.0); CKMB % 2.7 %; Calcium 7.8 MG/DL (8.5-10.1); Osmolality,Calculated 297.8 MOS/KG (273-304); Total Protein 5.3 G/DL (6.4-8.3)
[2020-09-23 05:58] LABS: Troponin I 32.6 NG/ML (0.00-0.045)
[2020-09-23] MEDS: LOSARTAN 25 MG TABLET PO SCH (09:29)
[2020-09-23] MEDS: PANTOPRAZOLE 40 MG TABLET PO SCH (09:29)
[2020-09-23] MEDS: ASCORBIC ACID 500 MG TABLET PO SCH ×2 (09:29→21:30)
[2020-09-23] MEDS: hydrALAZINE 25 MG TABLET PO SCH (09:29)
[2020-09-23] MEDS: DOCUSATE SODIUM 100 MG CAPSULE PO SCH (09:29)
[2020-09-23] MEDS: FERROUS SULFATE 325 MG TABLET PO SCH (09:29)
[2020-09-23] MEDS: CHLORHEXIDINE 0.12% ORAL RINSE 60 ML BOTTLE SWISH/SPIT SCH ×2 (09:30→21:31)
[2020-09-23] MEDS: CLOPIDOGREL 75 MG TABLET PO SCH (09:32)
[2020-09-23] MEDS: LOSARTAN 50 MG TABLET PO SCH (21:30)
[2020-09-23] MEDS: ROSUVASTATIN 20 MG TABLET PO SCH (21:30)
[2020-09-24 06:05] LABS: Blood Urea Nitrogen 41 MG/DL (7-18); Calcium 7.6 MG/DL (8.5-10.1); Estimated Glom Filtration Rate 31 ML/MIN; Glucose 114 MG/DL (74-106); Osmolality,Calculated 285.7 MOS/KG (273-304)
[2020-09-24] MEDS ORDERED: OLOPATADINE 0.1% OPH SOLN 5 ML BOTTLE BOTH EYES SCH (09:00)
[2020-09-24] MEDS: FERROUS SULFATE 325 MG TABLET PO SCH (09:27)
[2020-09-24] MEDS: LOSARTAN 50 MG TABLET PO SCH ×2 (09:27→21:07)
[2020-09-24] MEDS: POTASSIUM CHLORIDE 20 MEQ TABLET PO SCH (09:27)
[2020-09-24] MEDS: DOCUSATE SODIUM 100 MG CAPSULE PO SCH (09:27)
[2020-09-24] MEDS: glyBURIDE 5 MG TABLET PO SCH ×2 (09:27→16:03)
[2020-09-24] MEDS: FUROSEMIDE 40 MG TABLET PO SCH (09:28)
[2020-09-24] MEDS: PANTOPRAZOLE 40 MG TABLET PO SCH (09:28)
[2020-09-24] MEDS: METOPROLOL TARTRATE 25 MG TABLET PO SCH ×2 (09:28→21:13)
[2020-09-24] MEDS: CHLORHEXIDINE 0.12% ORAL RINSE 60 ML BOTTLE SWISH/SPIT SCH ×2 (09:28→21:06)
[2020-09-24] MEDS: CLOPIDOGREL 75 MG TABLET PO SCH (09:28)
[2020-09-24] MEDS: MONTELUKAST 10 MG TABLET PO SCH (09:28)
[2020-09-24] MEDS: ASCORBIC ACID 500 MG TABLET PO SCH ×2 (09:29→21:07)
[2020-09-24] MEDS: ALBUTEROL/IPRATROPIUM 3 ML NEB RESP TX SCH ×2 (14:45→18:58)
[2020-09-24] MEDS: ROSUVASTATIN 20 MG TABLET PO SCH (21:07)
[2020-09-24] MEDS: OLOPATADINE 0.1% OPH SOLN 5 ML BOTTLE BOTH EYES SCH (21:13)
[2020-09-25] MEDS: ALBUTEROL/IPRATROPIUM 3 ML NEB RESP TX SCH ×3 (00:25→13:08)
[2020-09-25 05:18] LABS: Basophils % 0.1 % (0.0-0.8); Eosinophils # 0.2 10*3/uL (0.0-0.87); Eosinophils % 2.9 % (0.00-10.9); Hematocrit 28.8 VOL% (35.7-47.0); Hemoglobin 9.5 GM/DL (12.0-16.0); Immature Granulocytes % 1.9 %; Immature Granulocytes Absolute 0.16 #; Lymphocytes # 1.1 10*3/uL (1.4-4.0); Lymphocytes % 13.5 % (21.3-54.2); Mean Platelet Volume 9.7 FL (9.6-12.0); Monocytes % 8.1 % (1.7-12.7); Neutrophils % 73.5 % (38.7-73.9); Platelet Count 201 T/CUMM (130-400); Red Blood Count 3.35 MC/CUMM (3.8-5.5); Red Cell Distribution Width 15.3 % (9.3-17.3); White Blood Count 8.2 T/CUMM (4-12)
[2020-09-25 05:27] LABS: Alanine Aminotransferase 19 U/L (13-56); Albumin 1.9 G/DL (3.4-5.0); Alkaline Phosphatase 128 U/L (45-117); Aspartate Amino Transferase 38 U/L (0-37); Blood Urea Nitrogen 41 MG/DL (7-18); Calcium 7.7 MG/DL (8.5-10.1); Estimated Glom Filtration Rate 29 ML/MIN; Glucose 131 MG/DL (74-106); Osmolality,Calculated 294.1 MOS/KG (273-304); Total Protein 5.2 G/DL (6.4-8.3)
[2020-09-25] MEDS ORDERED: LEVOTHYROXINE 50 MCG TABLET PO SCH (06:30)
[2020-09-25] MEDS: POTASSIUM CHLORIDE 20 MEQ TABLET PO SCH (09:20)
[2020-09-25] MEDS: DOCUSATE SODIUM 100 MG CAPSULE PO SCH (09:20)
[2020-09-25] MEDS: glyBURIDE 5 MG TABLET PO SCH (09:20)
[2020-09-25] MEDS: METOPROLOL TARTRATE 25 MG TABLET PO SCH (09:20)
[2020-09-25] MEDS: LOSARTAN 50 MG TABLET PO SCH (09:20)
[2020-09-25] MEDS: FUROSEMIDE 40 MG TABLET PO SCH (09:20)
[2020-09-25] MEDS: FERROUS SULFATE 325 MG TABLET PO SCH (09:20)
[2020-09-25] MEDS: OLOPATADINE 0.1% OPH SOLN 5 ML BOTTLE BOTH EYES SCH (09:21)
[2020-09-25] MEDS: MONTELUKAST 10 MG TABLET PO SCH (09:21)
[2020-09-25] MEDS: CHLORHEXIDINE 0.12% ORAL RINSE 60 ML BOTTLE SWISH/SPIT SCH (09:21)
[2020-09-25] MEDS: PANTOPRAZOLE 40 MG TABLET PO SCH (09:21)
[2020-09-25] MEDS: ASCORBIC ACID 500 MG TABLET PO SCH (09:21)
[2020-09-25 12:25] VITALS: BP 158/48
== END 2020-09-25 15:37 | disposition home health service (06) | DRG 234 ==
LOC: N.CL 11:08 → N.TELES 14:29 → N.CVR 09-17 11:57 → N.ICU 09-19 09:24 → N.TELES 09-21 16:49
PROVIDERS: ADMIT Internal Medicine Cardiovascular Disease; ATTEND Internal Medicine Cardiovascular Disease

== ENCOUNTER 2020-10-09 16:36 | Inpatient (IN) ==
[2020-10-09] MEDS ORDERED: GLUCAGON 1 MG VIAL IM PRN ×3 (18:56→20:12)
[2020-10-09] MEDS ORDERED: DEXTROSE 50% 25 GM/50 ML VIAL IV PRN ×3 (18:56→20:12)
[2020-10-09 19:18] LABS: Basophils % 0.3 % (0.0-0.8); Eosinophils # 0.1 10*3/uL (0.0-0.87); Eosinophils % 0.9 % (0.00-10.9); Hematocrit 33.6 VOL% (35.7-47.0); Hemoglobin 10.8 GM/DL (12.0-16.0); Immature Granulocytes % 0.6 %; Immature Granulocytes Absolute 0.05 #; Lymphocytes # 0.7 10*3/uL (1.4-4.0); Lymphocytes % 8.4 % (21.3-54.2); Mean Corpuscular HGB Conc 32.1 GM/DL (32-36); Mean Corpuscular Volume 87.3 FL (87-102); Monocytes % 8.8 % (1.7-12.7); Platelet Count 182 T/CUMM (130-400); Red Blood Count 3.85 MC/CUMM (3.8-5.5); Red Cell Distribution Width 16.8 % (9.3-17.3); White Blood Count 7.8 T/CUMM (4-12)
[2020-10-09 19:45] LABS: Albumin 2.4 G/DL (3.4-5.0); Bilirubin,Total 0.4 MG/DL (0.2-1.0); Calcium 7.5 MG/DL (8.5-10.1); Osmolality,Calculated 298.3 MOS/KG (273-304); Thyroid Stimulating Hormone 16.4 uIU/ml (0.358-3.74); Total Protein 6.5 G/DL (6.4-8.3)
[2020-10-09] MEDS: ROSUVASTATIN 20 MG TABLET PO SCH (20:34)
[2020-10-09] MEDS: ENOXAPARIN 40 MG/0.4 ML SYRINGE SUBCUT SCH (20:35)
[2020-10-09] MEDS: METOPROLOL TARTRATE 25 MG TABLET PO SCH (20:35)
[2020-10-09] MEDS ORDERED: FUROSEMIDE 20 MG/2 ML VIAL IV ONE (20:47)
[2020-10-09] MEDS: INSULIN LISPRO 100 UNIT/ML SUBCUT SCH (22:08)
[2020-10-10 01:21] LABS: Basophils % 0.3 % (0.0-0.8); Eosinophils # 0.1 10*3/uL (0.0-0.87); Eosinophils % 0.9 % (0.00-10.9); Hematocrit 29.5 VOL% (35.7-47.0); Hemoglobin 9.6 GM/DL (12.0-16.0); Immature Granulocytes % 0.4 %; Immature Granulocytes Absolute 0.03 #; Lymphocytes # 0.7 10*3/uL (1.4-4.0); Lymphocytes % 10.1 % (21.3-54.2); Mean Corpuscular HGB Conc 32.5 GM/DL (32-36); Mean Corpuscular Volume 85.8 FL (87-102); Mean Platelet Volume 9.5 FL (9.6-12.0); Monocytes % 10.4 % (1.7-12.7); Neutrophils % 77.9 % (38.7-73.9); Platelet Count 166 T/CUMM (130-400); Red Blood Count 3.44 MC/CUMM (3.8-5.5); Red Cell Distribution Width 16.9 % (9.3-17.3); White Blood Count 6.8 T/CUMM (4-12)
[2020-10-10 01:57] LABS: Calcium 7.4 MG/DL (8.5-10.1); Osmolality,Calculated 292.5 MOS/KG (273-304); Risk Ratio 1.35; VLDL CHOLESTEROL 9.2 MG/DL
[2020-10-10] MEDS: LEVOTHYROXINE 88 MCG TABLET PO SCH (06:00)
[2020-10-10] MEDS ORDERED: LEVOTHYROXINE 50 MCG TABLET PO SCH (06:30)
[2020-10-10] MEDS: INSULIN LISPRO 100 UNIT/ML SUBCUT SCH ×4 (08:50→20:49)
[2020-10-10] MEDS ORDERED: LIDOCAINE 1% 20 ML VIAL INFILTRAT ONE (09:34)
[2020-10-10] MEDS: METOPROLOL TARTRATE 25 MG TABLET PO SCH ×2 (09:41→20:49)
[2020-10-10 10:28] LABS: INR 1.2; PT Patient Result 12.8 SECS (9.8-11.9)
[2020-10-10] MEDS: FUROSEMIDE 20 MG/2 ML VIAL IV SCH (17:12)
[2020-10-10] MEDS: ASCORBIC ACID 500 MG TABLET PO SCH (20:49)
[2020-10-10] MEDS: ENOXAPARIN 40 MG/0.4 ML SYRINGE SUBCUT SCH (20:49)
[2020-10-10] MEDS: ROSUVASTATIN 20 MG TABLET PO SCH (20:49)
[2020-10-11 05:51] LABS: Basophils % 0.1 % (0.0-0.8); Eosinophils # 0.1 10*3/uL (0.0-0.87); Eosinophils % 1.4 % (0.00-10.9); Hematocrit 28.4 VOL% (35.7-47.0); Hemoglobin 9.3 GM/DL (12.0-16.0); Immature Granulocytes % 0.6 %; Immature Granulocytes Absolute 0.05 #; Lymphocytes # 1.2 10*3/uL (1.4-4.0); Lymphocytes % 14.7 % (21.3-54.2); Mean Corpuscular HGB Conc 32.7 GM/DL (32-36); Mean Corpuscular Volume 86.1 FL (87-102); Mean Platelet Volume 10.1 FL (9.6-12.0); Monocytes % 8.7 % (1.7-12.7); Neutrophils % 74.5 % (38.7-73.9); Platelet Count 144 T/CUMM (130-400); Red Cell Distribution Width 16.4 % (9.3-17.3); White Blood Count 8.4 T/CUMM (4-12)
[2020-10-11] MEDS: LEVOTHYROXINE 88 MCG TABLET PO SCH (05:57)
[2020-10-11] MEDS: INSULIN LISPRO 100 UNIT/ML SUBCUT SCH ×4 (07:31→20:28)
[2020-10-11] MEDS: ASCORBIC ACID 500 MG TABLET PO SCH ×2 (08:22→20:28)
[2020-10-11] MEDS: METOPROLOL TARTRATE 25 MG TABLET PO SCH ×2 (08:22→20:28)
[2020-10-11] MEDS: FUROSEMIDE 20 MG/2 ML VIAL IV SCH ×2 (08:23→15:28)
[2020-10-11] MEDS: ENOXAPARIN 40 MG/0.4 ML SYRINGE SUBCUT SCH (20:28)
[2020-10-11] MEDS: ROSUVASTATIN 20 MG TABLET PO SCH (20:28)
[2020-10-12] MEDS: LEVOTHYROXINE 88 MCG TABLET PO SCH (05:32)
[2020-10-12 05:52] LABS: Basophils % 0.2 % (0.0-0.8); Eosinophils # 0.6 10*3/uL (0.0-0.87); Eosinophils % 7.2 % (0.00-10.9); Hematocrit 29.3 VOL% (35.7-47.0); Hemoglobin 9.7 GM/DL (12.0-16.0); Immature Granulocytes % 0.5 %; Immature Granulocytes Absolute 0.04 #; Lymphocytes # 1.1 10*3/uL (1.4-4.0); Lymphocytes % 13.4 % (21.3-54.2); Mean Corpuscular HGB Conc 33.1 GM/DL (32-36); Mean Corpuscular Volume 84.7 FL (87-102); Mean Platelet Volume 9.6 FL (9.6-12.0); Monocytes % 9.7 % (1.7-12.7); Platelet Count 133 T/CUMM (130-400); Red Blood Count 3.46 MC/CUMM (3.8-5.5); Red Cell Distribution Width 16.1 % (9.3-17.3); White Blood Count 8.3 T/CUMM (4-12)
[2020-10-12 06:07] LABS: Calcium 7.2 MG/DL (8.5-10.1); Osmolality,Calculated 293.5 MOS/KG (273-304)
[2020-10-12] MEDS: INSULIN LISPRO 100 UNIT/ML SUBCUT SCH ×4 (06:49→20:55)
[2020-10-12 08:10] LABS: Amorphous Crystals,Urine Occasional /HPF (Few); Bilirubin,Urine Negative (Negative); Blood, Urine Negative (Negative); Glucose,Urine (UA) Negative (Negative); Ketones,Urine Negative (Negative); Mucus,Urine Occasional /LPF (Occasional); Nitrite,Urine Negative (Negative); Protein,Urine 100 MG/DL; RBC,Urine 4 /HPF (0-4); Red Blood Cell Casts,Urine 4 /LPF (<1); Squamous Epithelial Cell,Urine Occasional /HPF (0-10); Urine Appearance Slightly Hazy (Clear); Urine Color Yellow (Yellow); Urine Specific Gravity 1.011 (1.001-1.035); Urine Urobilinogen < 2.0 EU/DL (0.2-1.0); WBC,Urine 1 /HPF (0-6)
[2020-10-12] MEDS: METOPROLOL TARTRATE 25 MG TABLET PO SCH ×2 (09:15→20:55)
[2020-10-12] MEDS: ASCORBIC ACID 500 MG TABLET PO SCH ×2 (09:15→20:54)
[2020-10-12] MEDS: FUROSEMIDE 20 MG/2 ML VIAL IV SCH (09:15)
[2020-10-12] MEDS: MORPHINE 4 MG/1 ML VIAL IV PRN (14:00)
[2020-10-12] MEDS: SODIUM CHLORIDE 0.9% 1,000 ML IV SCH (14:13)
[2020-10-12] MEDS: ROSUVASTATIN 20 MG TABLET PO SCH (20:51)
[2020-10-12] MEDS: ENOXAPARIN 40 MG/0.4 ML SYRINGE SUBCUT SCH (20:54)
[2020-10-13] MEDS: MORPHINE 4 MG/1 ML VIAL IV PRN (00:45)
[2020-10-13] MEDS: SODIUM CHLORIDE 0.9% 1,000 ML IV SCH ×3 (00:45→21:12)
[2020-10-13 06:18] LABS: Basophils % 0.3 % (0.0-0.8); Eosinophils # 0.6 10*3/uL (0.0-0.87); Eosinophils % 7.9 % (0.00-10.9); Hematocrit 29.1 VOL% (35.7-47.0); Hemoglobin 9.7 GM/DL (12.0-16.0); Immature Granulocytes % 0.4 %; Immature Granulocytes Absolute 0.03 #; Lymphocytes # 1.2 10*3/uL (1.4-4.0); Lymphocytes % 15.1 % (21.3-54.2); Mean Corpuscular HGB Conc 33.3 GM/DL (32-36); Mean Corpuscular Volume 84.6 FL (87-102); Mean Platelet Volume 10.1 FL (9.6-12.0); Monocytes % 8.7 % (1.7-12.7); Neutrophils % 67.6 % (38.7-73.9); Platelet Count 140 T/CUMM (130-400); Red Blood Count 3.44 MC/CUMM (3.8-5.5); Red Cell Distribution Width 16.1 % (9.3-17.3); White Blood Count 7.7 T/CUMM (4-12)
[2020-10-13 06:33] LABS: Calcium 6.9 MG/DL (8.5-10.1); Osmolality,Calculated 294.4 MOS/KG (273-304)
[2020-10-13 06:36] LABS: Uric Acid 7.4 MG/DL (2.6-6.0)
[2020-10-13] MEDS: LEVOTHYROXINE 88 MCG TABLET PO SCH (06:42)
[2020-10-13 07:58] LABS: Immunoglobulin A (Chem) 257 MG/DL (70-400); Immunoglobulin G (Chem) 843 MG/DL (700-1600); Immunoglobulin M (Chem) 40 MG/DL (40-230)
[2020-10-13 09:15] LABS: Albumin (SPE) 2.4 G/DL (3.2-5.3); Albumin (SPE) Rel % 48.5 %; Alpha 1 (SPE) 0.3 G/DL (0.1-0.4); Alpha 1 (SPE) Rel % 5.3 %; Alpha 2 (SPE) 0.8 G/DL (0.4-1.0); Alpha 2 (SPE) Rel % 16.4 %; Beta (SPE) 0.6 G/DL (0.5-1.1); Beta (SPE) Rel % 12.6 %; Gamma (SPE) 0.9 G/DL (0.7-1.7); Gamma (SPE) Rel % 17.2 %
[2020-10-13] MEDS: INSULIN LISPRO 100 UNIT/ML SUBCUT SCH ×4 (09:32→21:09)
[2020-10-13] MEDS: ASCORBIC ACID 500 MG TABLET PO SCH ×2 (09:43→21:08)
[2020-10-13] MEDS: METOPROLOL TARTRATE 25 MG TABLET PO SCH ×2 (09:43→21:11)
[2020-10-13] MEDS: predniSONE 5 MG TABLET PO SCH (21:08)
[2020-10-13] MEDS: ROSUVASTATIN 20 MG TABLET PO SCH (21:08)
[2020-10-13] MEDS: ENOXAPARIN 40 MG/0.4 ML SYRINGE SUBCUT SCH (21:09)
[2020-10-14] MEDS: LEVOTHYROXINE 88 MCG TABLET PO SCH (06:07)
[2020-10-14 07:16] LABS: Basophils % 0.1 % (0.0-0.8); Eosinophils # 0.2 10*3/uL (0.0-0.87); Hematocrit 29.4 VOL% (35.7-47.0); Hemoglobin 9.6 GM/DL (12.0-16.0); Immature Granulocytes % 0.7 %; Immature Granulocytes Absolute 0.05 #; Lymphocytes # 0.8 10*3/uL (1.4-4.0); Lymphocytes % 11.4 % (21.3-54.2); Mean Corpuscular HGB Conc 32.7 GM/DL (32-36); Mean Platelet Volume 10.1 FL (9.6-12.0); Monocytes % 5.1 % (1.7-12.7); Neutrophils % 80.7 % (38.7-73.9); Platelet Count 144 T/CUMM (130-400); Red Blood Count 3.46 MC/CUMM (3.8-5.5); Red Cell Distribution Width 15.9 % (9.3-17.3); White Blood Count 7.4 T/CUMM (4-12)
[2020-10-14 07:26] LABS: Calcium 6.9 MG/DL (8.5-10.1); Osmolality,Calculated 293.7 MOS/KG (273-304)
[2020-10-14 07:32] LABS: Anisocytosis 1+; Platelet Estimate Adequate
[2020-10-14 07:33] LABS: Burr Cells Few; Poikilocytosis Slight
[2020-10-14] MEDS ORDERED: FUROSEMIDE 40 MG/4 ML VIAL IV ONE (08:08)
[2020-10-14] MEDS: INSULIN LISPRO 100 UNIT/ML SUBCUT SCH ×4 (08:10→21:05)
[2020-10-14] MEDS: predniSONE 5 MG TABLET PO SCH ×2 (08:38→21:02)
[2020-10-14] MEDS: METOPROLOL TARTRATE 25 MG TABLET PO SCH ×2 (08:38→21:04)
[2020-10-14] MEDS: ASCORBIC ACID 500 MG TABLET PO SCH ×2 (08:38→21:02)
[2020-10-14] MEDS ORDERED: metOLazone 5 MG TABLET PO SCH (09:00)
[2020-10-14 09:40] LABS: Immuno Free Light Chain Kappa 10.97 MG/DL (0.33-1.94); Immuno Free Light Chain Ratio 0.76 MG/DL (0.26-1.65)
[2020-10-14] MEDS: ROSUVASTATIN 20 MG TABLET PO SCH (21:02)
[2020-10-14] MEDS: ENOXAPARIN 40 MG/0.4 ML SYRINGE SUBCUT SCH (21:02)
[2020-10-15 05:28] LABS: Basophils % 0.1 % (0.0-0.8); Eosinophils # 0.1 10*3/uL (0.0-0.87); Eosinophils % 1.5 % (0.00-10.9); Hematocrit 29.3 VOL% (35.7-47.0); Hemoglobin 9.5 GM/DL (12.0-16.0); Immature Granulocytes % 0.8 %; Immature Granulocytes Absolute 0.06 #; Lymphocytes # 0.8 10*3/uL (1.4-4.0); Lymphocytes % 10.2 % (21.3-54.2); Mean Corpuscular HGB Conc 32.4 GM/DL (32-36); Mean Corpuscular Volume 85.4 FL (87-102); Mean Platelet Volume 9.8 FL (9.6-12.0); Monocytes % 5.3 % (1.7-12.7); Neutrophils % 82.1 % (38.7-73.9); Platelet Count 142 T/CUMM (130-400); Red Blood Count 3.43 MC/CUMM (3.8-5.5); White Blood Count 7.4 T/CUMM (4-12)
[2020-10-15] MEDS: LEVOTHYROXINE 88 MCG TABLET PO SCH (05:38)
[2020-10-15 05:47] LABS: Calcium 7.3 MG/DL (8.5-10.1); Osmolality,Calculated 299.4 MOS/KG (273-304)
[2020-10-15] MEDS: INSULIN LISPRO 100 UNIT/ML SUBCUT SCH ×4 (08:20→21:02)
[2020-10-15] MEDS: ASCORBIC ACID 500 MG TABLET PO SCH ×2 (09:13→20:55)
[2020-10-15] MEDS: METOPROLOL TARTRATE 25 MG TABLET PO SCH ×2 (09:13→20:56)
[2020-10-15] MEDS: predniSONE 5 MG TABLET PO SCH ×2 (09:13→20:56)
[2020-10-15] MEDS: FUROSEMIDE 80 MG TABLET PO SCH (09:14)
[2020-10-15] MEDS: guaiFENesin/DM ER 600-30 MG TABLET PO SCH ×2 (09:40→20:56)
[2020-10-15] MEDS ORDERED: ALBUTEROL/IPRATROPIUM 3 ML NEB RESP TX ONE (11:16)
[2020-10-15] MEDS: ALBUTEROL/IPRATROPIUM 3 ML NEB RESP TX SCH ×2 (13:03→19:25)
[2020-10-15] MEDS: CHOLECALCIFEROL 5,000 UNIT TABLET PO SCH (15:30)
[2020-10-15 20:32] LABS: Protein/Creatinine Ratio,Urine 1.8 RATIO
[2020-10-15] MEDS: ROSUVASTATIN 20 MG TABLET PO SCH (20:55)
[2020-10-15] MEDS: ENOXAPARIN 40 MG/0.4 ML SYRINGE SUBCUT SCH (20:55)
[2020-10-16] MEDS: ALBUTEROL/IPRATROPIUM 3 ML NEB RESP TX SCH ×4 (00:44→20:10)
[2020-10-16 05:56] LABS: Basophils % 0.1 % (0.0-0.8); Eosinophils % 0.3 % (0.00-10.9); Hematocrit 28.7 VOL% (35.7-47.0); Hemoglobin 9.3 GM/DL (12.0-16.0); Immature Granulocytes % 0.8 %; Immature Granulocytes Absolute 0.06 #; Lymphocytes # 0.6 10*3/uL (1.4-4.0); Lymphocytes % 7.5 % (21.3-54.2); Mean Corpuscular HGB Conc 32.4 GM/DL (32-36); Mean Corpuscular Volume 85.4 FL (87-102); Mean Platelet Volume 10.5 FL (9.6-12.0); Monocytes % 5.5 % (1.7-12.7); Neutrophils % 85.8 % (38.7-73.9); Platelet Count 159 T/CUMM (130-400); Red Blood Count 3.36 MC/CUMM (3.8-5.5); White Blood Count 7.8 T/CUMM (4-12)
[2020-10-16 06:17] LABS: Calcium 7.4 MG/DL (8.5-10.1); Osmolality,Calculated 297.7 MOS/KG (273-304)
[2020-10-16] MEDS: LEVOTHYROXINE 88 MCG TABLET PO SCH (06:28)
[2020-10-16] MEDS: INSULIN LISPRO 100 UNIT/ML SUBCUT SCH ×4 (08:28→21:31)
[2020-10-16] MEDS: CHOLECALCIFEROL 5,000 UNIT TABLET PO SCH (08:29)
[2020-10-16] MEDS: guaiFENesin/DM ER 600-30 MG TABLET PO SCH ×2 (08:30→20:41)
[2020-10-16] MEDS: predniSONE 5 MG TABLET PO SCH ×2 (08:30→20:41)
[2020-10-16] MEDS: ASCORBIC ACID 500 MG TABLET PO SCH ×2 (08:30→20:41)
[2020-10-16] MEDS: FUROSEMIDE 80 MG TABLET PO SCH (08:31)
[2020-10-16] MEDS: METOPROLOL TARTRATE 25 MG TABLET PO SCH ×2 (08:31→21:32)
[2020-10-16] MEDS: ROSUVASTATIN 20 MG TABLET PO SCH (20:41)
[2020-10-16] MEDS ORDERED: ENOXAPARIN 30 MG/0.3 ML SYRINGE SUBCUT SCH (21:00)
[2020-10-17] MEDS: ALBUTEROL/IPRATROPIUM 3 ML NEB RESP TX SCH ×3 (01:24→14:02)
[2020-10-17 05:38] LABS: Basophils % 0.1 % (0.0-0.8); Eosinophils % 0.6 % (0.00-10.9); Hemoglobin 9.1 GM/DL (12.0-16.0); Immature Granulocytes % 0.9 %; Immature Granulocytes Absolute 0.06 #; Lymphocytes # 0.6 10*3/uL (1.4-4.0); Lymphocytes % 8.1 % (21.3-54.2); Mean Corpuscular HGB Conc 32.5 GM/DL (32-36); Mean Corpuscular Volume 86.4 FL (87-102); Mean Platelet Volume 10.2 FL (9.6-12.0); Monocytes % 6.5 % (1.7-12.7); Neutrophils % 83.8 % (38.7-73.9); Platelet Count 152 T/CUMM (130-400); Red Blood Count 3.24 MC/CUMM (3.8-5.5); Red Cell Distribution Width 16.1 % (9.3-17.3); White Blood Count 6.9 T/CUMM (4-12)
[2020-10-17] MEDS: LEVOTHYROXINE 88 MCG TABLET PO SCH (06:15)
[2020-10-17 06:51] LABS: Calcium 7.6 MG/DL (8.5-10.1); Osmolality,Calculated 300.5 MOS/KG (273-304)
[2020-10-17] MEDS: INSULIN LISPRO 100 UNIT/ML SUBCUT SCH ×2 (09:05→12:48)
[2020-10-17] MEDS: FUROSEMIDE 80 MG TABLET PO SCH (10:00)
[2020-10-17] MEDS: ASCORBIC ACID 500 MG TABLET PO SCH (10:00)
[2020-10-17] MEDS: CHOLECALCIFEROL 5,000 UNIT TABLET PO SCH (10:00)
[2020-10-17] MEDS: guaiFENesin/DM ER 600-30 MG TABLET PO SCH (10:00)
[2020-10-17] MEDS: predniSONE 5 MG TABLET PO SCH (10:00)
[2020-10-17] MEDS: METOPROLOL TARTRATE 25 MG TABLET PO SCH (10:00)
[2020-10-17 11:05] VITALS: BP 152/67
== END 2020-10-17 16:42 | disposition home health service (06) | DRG 315 ==
LOC: INTOOBSV 18:19 → N.TELEN 18:19 → SUATTDRO 10-10 12:40
PROVIDERS: ADMIT Internal Medicine; ATTEND Emergency Medicine

== ENCOUNTER 2020-10-21 10:46 | Inpatient (IN) ==
[2020-10-21 12:00] LABS: Basophils % 0.1 % (0.0-0.8); Eosinophils # 0.1 10*3/uL (0.0-0.87); Eosinophils % 0.8 % (0.00-10.9); Hematocrit 33.2 VOL% (35.7-47.0); Immature Granulocytes % 0.8 %; Immature Granulocytes Absolute 0.08 #; Lymphocytes # 0.9 10*3/uL (1.4-4.0); Mean Corpuscular HGB Conc 33.1 GM/DL (32-36); Mean Corpuscular Volume 84.7 FL (87-102); Mean Platelet Volume 10.3 FL (9.6-12.0); Monocytes % 6.4 % (1.7-12.7); Neutrophils % 82.9 % (38.7-73.9); Platelet Count 201 T/CUMM (130-400); Red Blood Count 3.92 MC/CUMM (3.8-5.5); Red Cell Distribution Width 15.8 % (9.3-17.3); White Blood Count 9.8 T/CUMM (4-12)
[2020-10-21 12:06] LABS: Amorphous Crystals,Urine Occasional /HPF (Few); Bacteria,Urine Moderate /HPF (Few); Bilirubin,Urine Negative (Negative); Blood, Urine Small mg/dL (Negative); Glucose,Urine (UA) Negative (Negative); Ketones,Urine Negative (Negative); Mucus,Urine Occasional /LPF (Occasional); Nitrite,Urine Negative (Negative); Protein,Urine 100 MG/DL; Urine Appearance CLEAR (Clear); Urine Color Yellow (Yellow); Urine Specific Gravity 1.011 (1.001-1.035); Urine Urobilinogen < 2.0 EU/DL (0.2-1.0)
[2020-10-21 12:11] LABS: Barbiturates Screen,Urine Negative (Negative); Benzodiazepines Screen,Urine Negative (Negative); Cannabinoid Screen,Urine Negative (Negative); Opiate Screen,Urine Negative (Negative); Phencyclidine Screen,Urine Negative (Negative)
[2020-10-21 12:31] LABS: Thyroid Stimulating Hormone 8.9 uIU/ml (0.358-3.74)
[2020-10-21 12:47] LABS: Alanine Aminotransferase 129 U/L (13-56); Albumin 2.3 G/DL (3.4-5.0); Alkaline Phosphatase 185 U/L (45-117); Aspartate Amino Transferase 239 U/L (0-37); Bilirubin,Total < 0.39 MG/DL (0.2-1.0); Blood Urea Nitrogen 77 MG/DL (7-18); CKMB % 0.4 %; Calcium 8.1 MG/DL (8.5-10.1); Estimated Glom Filtration Rate 10 ML/MIN; Glucose 82 MG/DL (74-106); Osmolality,Calculated 298.5 MOS/KG (273-304); Total Protein 6.5 G/DL (6.4-8.3)
[2020-10-21] MEDS ORDERED: ONDANSETRON 4 MG/2 ML VIAL IV PRN (14:31)
[2020-10-21] MEDS ORDERED: ACETAMINOPHEN 325 MG TABLET PO PRN (14:31)
[2020-10-21] MEDS ORDERED: GLUCAGON 1 MG VIAL IM PRN (14:31)
[2020-10-21] MEDS ORDERED: DEXTROSE 50% 25 GM/50 ML VIAL IV PRN (14:31)
[2020-10-21] MEDS ORDERED: SODIUM CHLORIDE 0.9% 1,000 ML IV SCH (15:30)
[2020-10-21] MEDS ORDERED: ROSUVASTATIN 20 MG TABLET PO SCH (21:00)
[2020-10-21] MEDS: METOPROLOL TARTRATE 25 MG TABLET PO SCH (21:09)
[2020-10-21] MEDS: ASCORBIC ACID 500 MG TABLET PO SCH (21:09)
[2020-10-22 05:43] LABS: Basophils % 0.1 % (0.0-0.8); Eosinophils # 0.2 10*3/uL (0.0-0.87); Eosinophils % 2.4 % (0.00-10.9); Hematocrit 29.6 VOL% (35.7-47.0); Hemoglobin 9.7 GM/DL (12.0-16.0); Immature Granulocytes % 0.7 %; Immature Granulocytes Absolute 0.06 #; Lymphocytes # 1.1 10*3/uL (1.4-4.0); Lymphocytes % 13.3 % (21.3-54.2); Mean Corpuscular HGB Conc 32.8 GM/DL (32-36); Mean Corpuscular Volume 85.5 FL (87-102); Mean Platelet Volume 10.3 FL (9.6-12.0); Monocytes % 7.1 % (1.7-12.7); Neutrophils % 76.4 % (38.7-73.9); Platelet Count 181 T/CUMM (130-400); Red Blood Count 3.46 MC/CUMM (3.8-5.5); Red Cell Distribution Width 15.9 % (9.3-17.3); White Blood Count 8.1 T/CUMM (4-12)
[2020-10-22 06:28] LABS: Bilirubin,Total 0.7 MG/DL (0.2-1.0); Calcium 7.7 MG/DL (8.5-10.1); Osmolality,Calculated 299.4 MOS/KG (273-304); Total Protein 5.8 G/DL (6.4-8.3)
[2020-10-22] MEDS: ASCORBIC ACID 500 MG TABLET PO SCH ×2 (08:57→22:12)
[2020-10-22] MEDS: MONTELUKAST 10 MG TABLET PO SCH (08:57)
[2020-10-22] MEDS: FERROUS SULFATE 325 MG TABLET PO SCH (08:57)
[2020-10-22] MEDS: DOCUSATE SODIUM 100 MG CAPSULE PO SCH (08:57)
[2020-10-22] MEDS: POTASSIUM CHLORIDE 20 MEQ TABLET PO SCH (08:57)
[2020-10-22] MEDS: METOPROLOL TARTRATE 25 MG TABLET PO SCH ×2 (08:58→22:11)
[2020-10-22] MEDS: PANTOPRAZOLE 40 MG TABLET PO SCH (08:58)
[2020-10-22] MEDS: CLOPIDOGREL 75 MG TABLET PO SCH (08:58)
[2020-10-22] MEDS: NON-FORMULARY MEDICATION (Fluticasone Furoate-Vilanterol [Breo Ellipta] 200-25 mcg/dose Bl INH SCH (10:50)
[2020-10-22 15:05] LABS: Hepatitis B Surface Ag Quant < 0.10 Index; Hepatitis B Surface Ag Result Negative (Negative); Hepatitis C Virus Ab Quant 0.07 Index; Hepatitis C Virus Ab Result Negative (Negative)
[2020-10-22] MEDS: SODIUM HYPOCHLORITE 0.25% IRRIG 473 ML BOTTLE TOP SCH (16:10)
[2020-10-22] MEDS: APIXABAN 2.5 MG TABLET PO SCH (22:11)
[2020-10-23 05:45] LABS: Basophils % 0.3 % (0.0-0.8); Eosinophils # 0.4 10*3/uL (0.0-0.87); Eosinophils % 4.9 % (0.00-10.9); Hematocrit 28.2 VOL% (35.7-47.0); Immature Granulocytes % 0.7 %; Immature Granulocytes Absolute 0.05 #; Lymphocytes # 1.2 10*3/uL (1.4-4.0); Lymphocytes % 16.9 % (21.3-54.2); Mean Corpuscular HGB Conc 31.9 GM/DL (32-36); Mean Corpuscular Volume 86.8 FL (87-102); Mean Platelet Volume 10.4 FL (9.6-12.0); Monocytes % 7.8 % (1.7-12.7); Neutrophils % 69.4 % (38.7-73.9); Platelet Count 180 T/CUMM (130-400); Red Blood Count 3.25 MC/CUMM (3.8-5.5); Red Cell Distribution Width 16.2 % (9.3-17.3); White Blood Count 7.3 T/CUMM (4-12)
[2020-10-23 06:39] LABS: Bilirubin,Total 0.7 MG/DL (0.2-1.0); Calcium 7.4 MG/DL (8.5-10.1); Osmolality,Calculated 299.5 MOS/KG (273-304); Total Protein 5.7 G/DL (6.4-8.3)
[2020-10-23] MEDS: PANTOPRAZOLE 40 MG TABLET PO SCH (09:26)
[2020-10-23] MEDS: FERROUS SULFATE 325 MG TABLET PO SCH (09:26)
[2020-10-23] MEDS: MONTELUKAST 10 MG TABLET PO SCH (09:26)
[2020-10-23] MEDS: DOCUSATE SODIUM 100 MG CAPSULE PO SCH (09:26)
[2020-10-23] MEDS: ASCORBIC ACID 500 MG TABLET PO SCH ×2 (09:26→21:42)
[2020-10-23] MEDS: CLOPIDOGREL 75 MG TABLET PO SCH (09:27)
[2020-10-23] MEDS: METOPROLOL TARTRATE 25 MG TABLET PO SCH ×2 (09:27→21:41)
[2020-10-23] MEDS: APIXABAN 2.5 MG TABLET PO SCH ×2 (09:27→21:41)
[2020-10-23] MEDS: SODIUM HYPOCHLORITE 0.25% IRRIG 473 ML BOTTLE TOP SCH (09:27)
[2020-10-23] MEDS: POTASSIUM CHLORIDE 20 MEQ TABLET PO SCH (09:27)
[2020-10-23] MEDS: NON-FORMULARY MEDICATION (Fluticasone Furoate-Vilanterol [Breo Ellipta] 200-25 mcg/dose Bl INH SCH (09:27)
[2020-10-23] MEDS: ALBUTEROL 2.5 MG/3 ML NEB RESP TX PRN ×2 (10:35→22:08)
[2020-10-23] MEDS ORDERED: SODIUM CHLORIDE 0.9% 500 ML IV SCH (11:30)
[2020-10-23] MEDS: INSULIN LISPRO 100 UNIT/ML SUBCUT SCH ×2 (17:18→21:44)
[2020-10-24 07:30] LABS: Calcium 7.1 MG/DL (8.5-10.1); Osmolality,Calculated 295.8 MOS/KG (273-304)
[2020-10-24] MEDS: INSULIN LISPRO 100 UNIT/ML SUBCUT SCH ×2 (08:34→12:18)
[2020-10-24] MEDS: DOCUSATE SODIUM 100 MG CAPSULE PO SCH (08:44)
[2020-10-24] MEDS: FERROUS SULFATE 325 MG TABLET PO SCH (08:45)
[2020-10-24] MEDS: ASCORBIC ACID 500 MG TABLET PO SCH (08:45)
[2020-10-24] MEDS: CLOPIDOGREL 75 MG TABLET PO SCH (08:45)
[2020-10-24] MEDS: APIXABAN 2.5 MG TABLET PO SCH (08:45)
[2020-10-24] MEDS: POTASSIUM CHLORIDE 20 MEQ TABLET PO SCH (08:45)
[2020-10-24] MEDS: PANTOPRAZOLE 40 MG TABLET PO SCH (08:45)
[2020-10-24] MEDS: METOPROLOL TARTRATE 25 MG TABLET PO SCH (08:45)
[2020-10-24] MEDS: MONTELUKAST 10 MG TABLET PO SCH (08:45)
[2020-10-24] MEDS: NON-FORMULARY MEDICATION (Fluticasone Furoate-Vilanterol [Breo Ellipta] 200-25 mcg/dose Bl INH SCH (08:49)
[2020-10-24] MEDS: SODIUM HYPOCHLORITE 0.25% IRRIG 473 ML BOTTLE TOP SCH (08:49)
[2020-10-24] MEDS ORDERED: CHOLECALCIFEROL 1,000 UNIT TABLET PO SCH (09:00)
[2020-10-24 12:44] VITALS: BP 159/72
== END 2020-10-24 14:44 | DRG 65 ==
LOC: EDBD → EDUNIT# → N.EDINP 10:46 → N.ED 10:46 → OBSVTOIN 14:31 → N.EDINP 15:23 → N.TELES 16:06
PROVIDERS: ADMIT Internal Medicine; ATTEND Internal Medicine

== ENCOUNTER 2020-12-24 13:25 | Inpatient (IN) ==
[2020-12-24 14:16] LABS: Basophils % 0.3 % (0.0-0.8); Eosinophils # 0.2 10*3/uL (0.0-0.87); Eosinophils % 2.3 % (0.00-10.9); Hematocrit 27.8 VOL% (35.7-47.0); Hemoglobin 8.8 GM/DL (12.0-16.0); Immature Granulocytes % 0.4 %; Immature Granulocytes Absolute 0.04 #; Lymphocytes # 2.8 10*3/uL (1.4-4.0); Lymphocytes % 28.1 % (21.3-54.2); Mean Corpuscular HGB Conc 31.7 GM/DL (32-36); Mean Corpuscular Volume 90.8 FL (87-102); Mean Platelet Volume 9.6 FL (9.6-12.0); Monocytes % 5.4 % (1.7-12.7); Neutrophils % 63.5 % (38.7-73.9); Platelet Count 260 T/CUMM (130-400); Red Blood Count 3.06 MC/CUMM (3.8-5.5); White Blood Count 9.9 T/CUMM (4-12)
[2020-12-24 14:48] LABS: Bilirubin,Urine Negative (Negative); Blood, Urine Negative (Negative); Glucose,Urine (UA) Negative (Negative); Ketones,Urine Negative (Negative); Nitrite,Urine Negative (Negative); Protein,Urine 30 MG/DL; Urine Appearance Clear (Clear); Urine Color Yellow (Yellow); Urine Specific Gravity 1.005 (1.001-1.035)
[2020-12-24 14:49] LABS: Urine Urobilinogen 0.5 EU/DL (0.2-1.0)
[2020-12-24 14:59] LABS: Alanine Aminotransferase 31 U/L (13-56); Albumin 3.1 G/DL (3.4-5.0); Alkaline Phosphatase 111 U/L (45-117); Aspartate Amino Transferase 39 U/L (0-37); Bilirubin,Total < 0.39 MG/DL (0.2-1.0); Blood Urea Nitrogen 55 MG/DL (7-18); Calcium 8.2 MG/DL (8.5-10.1); Carbon Dioxide 22 MMOL/L (21-32); Estimated Glom Filtration Rate 16 ML/MIN; Glucose 198 MG/DL (74-106); Osmolality,Calculated 288.2 MOS/KG (273-304); Potassium 4.5 MMOL/L (3.5-5.1); Sodium 134 MMOL/L (136-145); Total Protein 6.9 G/DL (6.4-8.3)
[2020-12-24] MEDS ORDERED: GLUCAGON 1 MG VIAL IM PRN ×2 (16:00)
[2020-12-24] MEDS ORDERED: ENOXAPARIN 30 MG/0.3 ML SYRINGE SUBCUT SCH (16:00)
[2020-12-24] MEDS ORDERED: DEXTROSE 50% 25 GM/50 ML VIAL IV PRN ×2 (16:00)
[2020-12-24] MEDS: SODIUM CHLORIDE 0.9% 1,000 ML IV SCH (18:25)
[2020-12-24] MEDS: INSULIN REGULAR 100 UNIT/ML SUBCUT SCH ×2 (18:25→20:46)
[2020-12-24] MEDS: ASCORBIC ACID 500 MG TABLET PO SCH (20:44)
[2020-12-24] MEDS: APIXABAN 2.5 MG TABLET PO SCH (20:44)
[2020-12-24] MEDS: ROSUVASTATIN 20 MG TABLET PO SCH (20:44)
[2020-12-24] MEDS: glyBURIDE 5 MG TABLET PO SCH (20:45)
[2020-12-25] MEDS: SODIUM CHLORIDE 0.9% 1,000 ML IV SCH ×3 (03:47→21:32)
[2020-12-25 05:31] LABS: Basophils % 0.1 % (0.0-0.8); Eosinophils # 0.3 10*3/uL (0.0-0.87); Eosinophils % 3.7 % (0.00-10.9); Hematocrit 24.2 VOL% (35.7-47.0); Hemoglobin 7.6 GM/DL (12.0-16.0); Immature Granulocytes % 0.4 %; Immature Granulocytes Absolute 0.03 #; Lymphocytes # 2.4 10*3/uL (1.4-4.0); Lymphocytes % 33.8 % (21.3-54.2); Mean Corpuscular HGB Conc 31.4 GM/DL (32-36); Platelet Count 213 T/CUMM (130-400); Red Blood Count 2.66 MC/CUMM (3.8-5.5); Red Cell Distribution Width 13.8 % (9.3-17.3)
[2020-12-25] MEDS: LEVOTHYROXINE 50 MCG TABLET PO SCH (05:47)
[2020-12-25 05:56] LABS: Alanine Aminotransferase 26 U/L (13-56); Albumin 2.5 G/DL (3.4-5.0); Alkaline Phosphatase 85 U/L (45-117); Aspartate Amino Transferase 27 U/L (0-37); Bilirubin,Total < 0.39 MG/DL (0.2-1.0); Blood Urea Nitrogen 55 MG/DL (7-18); Calcium 7.7 MG/DL (8.5-10.1); Carbon Dioxide 22 MMOL/L (21-32); Estimated Glom Filtration Rate 17 ML/MIN; Glucose 69 MG/DL (74-106); HDL Cholesterol 43 MG/DL (40-60); Osmolality,Calculated 293.3 MOS/KG (273-304); Potassium 3.7 MMOL/L (3.5-5.1); Risk Ratio 1.51; Sodium 141 MMOL/L (136-145); Triglycerides 61 MG/DL (2-150); VLDL CHOLESTEROL 12.2 MG/DL
[2020-12-25] MEDS: INSULIN REGULAR 100 UNIT/ML SUBCUT SCH ×4 (07:23→20:59)
[2020-12-25] MEDS: glyBURIDE 5 MG TABLET PO SCH ×2 (08:03→20:59)
[2020-12-25] MEDS: CHOLECALCIFEROL 1,000 UNIT TABLET PO SCH (08:03)
[2020-12-25] MEDS: APIXABAN 2.5 MG TABLET PO SCH ×2 (08:04→20:59)
[2020-12-25] MEDS: MONTELUKAST 10 MG TABLET PO SCH (08:04)
[2020-12-25] MEDS: ASCORBIC ACID 500 MG TABLET PO SCH ×2 (08:04→20:59)
[2020-12-25] MEDS: FERROUS SULFATE 325 MG TABLET PO SCH (08:04)
[2020-12-25] MEDS: DOCUSATE SODIUM 100 MG CAPSULE PO SCH (08:04)
[2020-12-25] MEDS: NON-FORMULARY MEDICATION (Fluticasone Furoate-Vilanterol [Breo Ellipta] 200-25 mcg/dose Bl INH SCH (08:15)
[2020-12-25] MEDS ORDERED: SODIUM CHLORIDE 0.9% 1,000 ML IV PRN (12:16)
[2020-12-25] MEDS: ROSUVASTATIN 20 MG TABLET PO SCH (20:58)
[2020-12-26 01:32] LABS: Hematocrit 32.1 VOL% (35.7-47.0)
[2020-12-26 01:34] LABS: Hemoglobin 10.2 GM/DL (12.0-16.0)
[2020-12-26] MEDS: LEVOTHYROXINE 50 MCG TABLET PO SCH (05:38)
[2020-12-26] MEDS: SODIUM CHLORIDE 0.9% 1,000 ML IV SCH (05:46)
[2020-12-26] MEDS: glyBURIDE 5 MG TABLET PO SCH (09:00)
[2020-12-26] MEDS: CHOLECALCIFEROL 1,000 UNIT TABLET PO SCH (09:03)
[2020-12-26] MEDS: MONTELUKAST 10 MG TABLET PO SCH (09:03)
[2020-12-26] MEDS: DOCUSATE SODIUM 100 MG CAPSULE PO SCH (09:03)
[2020-12-26] MEDS: FERROUS SULFATE 325 MG TABLET PO SCH (09:04)
[2020-12-26] MEDS: APIXABAN 2.5 MG TABLET PO SCH (09:04)
[2020-12-26] MEDS: ASCORBIC ACID 500 MG TABLET PO SCH (09:04)
[2020-12-26] MEDS: INSULIN REGULAR 100 UNIT/ML SUBCUT SCH ×2 (09:07→11:54)
[2020-12-26] MEDS: NON-FORMULARY MEDICATION (Fluticasone Furoate-Vilanterol [Breo Ellipta] 200-25 mcg/dose Bl INH SCH (09:08)
[2020-12-26 09:18] LABS: Basophils % 0.2 % (0.0-0.8); Eosinophils # 0.4 10*3/uL (0.0-0.87); Eosinophils % 5.5 % (0.00-10.9); Hematocrit 33.4 VOL% (35.7-47.0); Hemoglobin 10.7 GM/DL (12.0-16.0); Immature Granulocytes % 0.6 %; Immature Granulocytes Absolute 0.04 #; Lymphocytes # 1.5 10*3/uL (1.4-4.0); Lymphocytes % 23.1 % (21.3-54.2); Mean Corpuscular Volume 91.3 FL (87-102); Mean Platelet Volume 9.2 FL (9.6-12.0); Neutrophils % 61.6 % (38.7-73.9); Platelet Count 173 T/CUMM (130-400); Red Blood Count 3.66 MC/CUMM (3.8-5.5); Red Cell Distribution Width 13.7 % (9.3-17.3); White Blood Count 6.6 T/CUMM (4-12)
[2020-12-26 09:36] LABS: Calcium 7.6 MG/DL (8.5-10.1); Potassium 4.2 MMOL/L (3.5-5.1)
[2020-12-26] MEDS ORDERED: ACETAMINOPHEN 325 MG TABLET PO PRN (10:11)
[2020-12-26 11:34] VITALS: BP 184/116
== END 2020-12-26 14:55 | disposition home or self-care (01) | DRG 683 ==
LOC: N.ED 13:25 → N.EDINP 16:03 → N.5E 18:05
PROVIDERS: ADMIT Internal Medicine; ATTEND Internal Medicine

== ENCOUNTER 2021-01-15 10:54 | Inpatient (IN) ==
[2021-01-15 11:38] LABS: Basophils % 0.2 % (0.0-0.8); Eosinophils # 0.2 10*3/uL (0.0-0.87); Eosinophils % 2.9 % (0.00-10.9); Hematocrit 27.6 VOL% (35.7-47.0); Hemoglobin 8.8 GM/DL (12.0-16.0); Immature Granulocytes % 0.5 %; Immature Granulocytes Absolute 0.03 #; Lymphocytes # 1.6 10*3/uL (1.4-4.0); Lymphocytes % 24.2 % (21.3-54.2); Mean Corpuscular HGB Conc 31.9 GM/DL (32-36); Mean Corpuscular Volume 90.5 FL (87-102); Mean Platelet Volume 9.7 FL (9.6-12.0); Monocytes % 8.6 % (1.7-12.7); Neutrophils % 63.6 % (38.7-73.9); Platelet Count 207 T/CUMM (130-400); Red Blood Count 3.05 MC/CUMM (3.8-5.5); Red Cell Distribution Width 13.5 % (9.3-17.3); White Blood Count 6.5 T/CUMM (4-12)
[2021-01-15 12:06] LABS: Alanine Aminotransferase 38 U/L (13-56); Albumin 2.9 G/DL (3.4-5.0); Alkaline Phosphatase 100 U/L (45-117); Aspartate Amino Transferase 34 U/L (0-37); Bilirubin,Total < 0.39 MG/DL (0.2-1.0); Blood Urea Nitrogen 54 MG/DL (7-18); Calcium 8.4 MG/DL (8.5-10.1); Carbon Dioxide 19 MMOL/L (21-32); Estimated Glom Filtration Rate 20 ML/MIN; Glucose 155 MG/DL (74-106); Potassium 4.5 MMOL/L (3.5-5.1); Sodium 136 MMOL/L (136-145); Total Protein 6.4 G/DL (6.4-8.3)
[2021-01-15] MEDS ORDERED: ONDANSETRON 4 MG/2 ML VIAL IV PRN (13:19)
[2021-01-15] MEDS ORDERED: ENOXAPARIN 30 MG/0.3 ML SYRINGE SUBCUT SCH (13:30)
[2021-01-15] MEDS: FUROSEMIDE 40 MG/4 ML VIAL IV SCH ×2 (15:12→16:33)
[2021-01-15 16:12] LABS: Troponin I 0.025 NG/ML (0.00-0.045)
[2021-01-15] MEDS: INSULIN REGULAR 100 UNIT/ML SUBCUT SCH ×3 (16:30→21:54)
[2021-01-15] MEDS ORDERED: METOPROLOL TARTRATE 25 MG TABLET PO SCH (21:00)
[2021-01-15] MEDS: glyBURIDE 5 MG TABLET PO SCH (21:51)
[2021-01-15] MEDS: ASCORBIC ACID 500 MG TABLET PO SCH (21:51)
[2021-01-15] MEDS: APIXABAN 2.5 MG TABLET PO SCH (21:51)
[2021-01-15] MEDS: ROSUVASTATIN 20 MG TABLET PO SCH (21:51)
[2021-01-16 06:00] LABS: Basophils % 0.4 % (0.0-0.8); Eosinophils # 0.2 10*3/uL (0.0-0.87); Eosinophils % 3.2 % (0.00-10.9); Hematocrit 25.6 VOL% (35.7-47.0); Hemoglobin 8.4 GM/DL (12.0-16.0); Immature Granulocytes % 0.2 %; Immature Granulocytes Absolute 0.01 #; Lymphocytes # 1.8 10*3/uL (1.4-4.0); Lymphocytes % 34.7 % (21.3-54.2); Mean Corpuscular HGB Conc 32.8 GM/DL (32-36); Mean Corpuscular Volume 89.5 FL (87-102); Mean Platelet Volume 9.6 FL (9.6-12.0); Monocytes % 8.6 % (1.7-12.7); Neutrophils % 52.9 % (38.7-73.9); Platelet Count 182 T/CUMM (130-400); Red Blood Count 2.86 MC/CUMM (3.8-5.5); Red Cell Distribution Width 13.2 % (9.3-17.3); White Blood Count 5.3 T/CUMM (4-12)
[2021-01-16 06:21] LABS: Calcium 8.3 MG/DL (8.5-10.1); Osmolality,Calculated 290.5 MOS/KG (273-304); Potassium 4.1 MMOL/L (3.5-5.1); Risk Ratio 1.62; VLDL CHOLESTEROL 10.8 MG/DL
[2021-01-16] MEDS: LEVOTHYROXINE 50 MCG TABLET PO SCH (06:51)
[2021-01-16 08:34] LABS: Troponin I 0.023 NG/ML (0.00-0.045)
[2021-01-16] MEDS: FUROSEMIDE 40 MG/4 ML VIAL IV SCH (09:38)
[2021-01-16] MEDS: DOCUSATE SODIUM 100 MG CAPSULE PO SCH (10:06)
[2021-01-16] MEDS: PANTOPRAZOLE 40 MG TABLET PO SCH (10:06)
[2021-01-16] MEDS: POTASSIUM CHLORIDE 20 MEQ TABLET PO SCH (10:06)
[2021-01-16] MEDS: METOPROLOL TARTRATE 25 MG TABLET PO SCH ×3 (10:07→21:50)
[2021-01-16] MEDS: ASCORBIC ACID 500 MG TABLET PO SCH ×2 (10:07→21:49)
[2021-01-16] MEDS: CHOLECALCIFEROL 1,000 UNIT TABLET PO SCH (10:07)
[2021-01-16] MEDS: APIXABAN 2.5 MG TABLET PO SCH ×2 (10:07→21:49)
[2021-01-16] MEDS: FERROUS SULFATE 325 MG TABLET PO SCH (10:08)
[2021-01-16] MEDS: MONTELUKAST 10 MG TABLET PO SCH (10:08)
[2021-01-16] MEDS: glyBURIDE 5 MG TABLET PO SCH ×2 (10:14→21:49)
[2021-01-16] MEDS: INSULIN REGULAR 100 UNIT/ML SUBCUT SCH ×4 (10:15→21:50)
[2021-01-16] MEDS: ALBUTEROL 2.5 MG/3 ML NEB RESP TX PRN (14:07)
[2021-01-16] MEDS: ACETAMINOPHEN 325 MG TABLET PO PRN (16:36)
[2021-01-16] MEDS: ROSUVASTATIN 20 MG TABLET PO SCH (21:49)
[2021-01-17 06:00] LABS: Basophils % 0.4 % (0.0-0.8); Eosinophils # 0.2 10*3/uL (0.0-0.87); Eosinophils % 3.2 % (0.00-10.9); Hematocrit 24.5 VOL% (35.7-47.0); Hemoglobin 8.1 GM/DL (12.0-16.0); Immature Granulocytes % 0.4 %; Immature Granulocytes Absolute 0.02 #; Lymphocytes # 1.9 10*3/uL (1.4-4.0); Lymphocytes % 37.6 % (21.3-54.2); Mean Corpuscular HGB Conc 33.1 GM/DL (32-36); Mean Corpuscular Volume 89.7 FL (87-102); Monocytes % 9.1 % (1.7-12.7); Neutrophils % 49.3 % (38.7-73.9); Platelet Count 185 T/CUMM (130-400); Red Blood Count 2.73 MC/CUMM (3.8-5.5); Red Cell Distribution Width 13.2 % (9.3-17.3)
[2021-01-17] MEDS: LEVOTHYROXINE 50 MCG TABLET PO SCH (06:00)
[2021-01-17 06:11] LABS: Bilirubin,Urine Negative (Negative); Blood, Urine Negative (Negative); Glucose,Urine (UA) Negative (Negative); Ketones,Urine Negative (Negative); Nitrite,Urine Negative (Negative); Protein,Urine 100 MG/DL; RBC,Urine 1 /HPF (0-4); Squamous Epithelial Cell,Urine Occasional /HPF (0-10); Urine Appearance CLEAR (Clear); Urine Color Yellow (Yellow); Urine Specific Gravity 1.013 (1.001-1.035); Urine Urobilinogen < 2.0 EU/DL (0.2-1.0); WBC,Urine 1 /HPF (0-6)
[2021-01-17 06:30] LABS: Calcium 7.8 MG/DL (8.5-10.1); Osmolality,Calculated 296.1 MOS/KG (273-304); Potassium 4.2 MMOL/L (3.5-5.1)
[2021-01-17 06:34] LABS: % Iron Saturation 28.4 % (18-50); Ferritin 176.7 ng/ml (8-252)
[2021-01-17 06:39] LABS: Parathyroid Hormone Intact 95.4 PG/ML (18.4-80.1)
[2021-01-17] MEDS: INSULIN REGULAR 100 UNIT/ML SUBCUT SCH ×4 (08:22→21:23)
[2021-01-17] MEDS: APIXABAN 2.5 MG TABLET PO SCH ×2 (10:13→21:27)
[2021-01-17] MEDS: CHOLECALCIFEROL 1,000 UNIT TABLET PO SCH (10:13)
[2021-01-17] MEDS: DOCUSATE SODIUM 100 MG CAPSULE PO SCH (10:13)
[2021-01-17] MEDS: glyBURIDE 5 MG TABLET PO SCH ×2 (10:14→21:23)
[2021-01-17] MEDS: MONTELUKAST 10 MG TABLET PO SCH (10:14)
[2021-01-17] MEDS: PANTOPRAZOLE 40 MG TABLET PO SCH (10:15)
[2021-01-17] MEDS: POTASSIUM CHLORIDE 20 MEQ TABLET PO SCH (10:15)
[2021-01-17] MEDS: FERROUS SULFATE 325 MG TABLET PO SCH (10:16)
[2021-01-17] MEDS: ASCORBIC ACID 500 MG TABLET PO SCH ×2 (10:16→21:24)
[2021-01-17] MEDS: METOPROLOL TARTRATE 25 MG TABLET PO SCH ×2 (10:17→21:24)
[2021-01-17] MEDS: ALBUTEROL 2.5 MG/3 ML NEB RESP TX PRN (17:45)
[2021-01-17] MEDS: ACETAMINOPHEN 325 MG TABLET PO PRN (18:39)
[2021-01-17] MEDS: ROSUVASTATIN 20 MG TABLET PO SCH (21:24)
[2021-01-18] MEDS: ACETAMINOPHEN 325 MG TABLET PO PRN ×3 (03:56→21:00)
[2021-01-18 05:33] LABS: Basophils % 0.2 % (0.0-0.8); Eosinophils # 0.1 10*3/uL (0.0-0.87); Eosinophils % 1.9 % (0.00-10.9); Hematocrit 24.1 VOL% (35.7-47.0); Hemoglobin 7.6 GM/DL (12.0-16.0); Immature Granulocytes % 0.8 %; Immature Granulocytes Absolute 0.04 #; Lymphocytes # 1.6 10*3/uL (1.4-4.0); Lymphocytes % 30.2 % (21.3-54.2); Mean Corpuscular HGB Conc 31.5 GM/DL (32-36); Mean Platelet Volume 10.3 FL (9.6-12.0); Monocytes % 8.3 % (1.7-12.7); Neutrophils % 58.6 % (38.7-73.9); Platelet Count 173 T/CUMM (130-400); Red Blood Count 2.62 MC/CUMM (3.8-5.5); Red Cell Distribution Width 13.1 % (9.3-17.3); White Blood Count 5.3 T/CUMM (4-12)
[2021-01-18 05:51] LABS: Protein/Creatinine Ratio,Urine 1.3 RATIO
[2021-01-18] MEDS: LEVOTHYROXINE 50 MCG TABLET PO SCH (05:58)
[2021-01-18 06:06] LABS: Calcium 7.6 MG/DL (8.5-10.1); Osmolality,Calculated 289.1 MOS/KG (273-304)
[2021-01-18] MEDS: INSULIN REGULAR 100 UNIT/ML SUBCUT SCH ×4 (07:41→20:59)
[2021-01-18] MEDS: glyBURIDE 5 MG TABLET PO SCH ×2 (09:40→20:58)
[2021-01-18] MEDS: APIXABAN 2.5 MG TABLET PO SCH ×2 (09:40→21:04)
[2021-01-18] MEDS: ASCORBIC ACID 500 MG TABLET PO SCH ×2 (09:41→20:59)
[2021-01-18] MEDS: FERROUS SULFATE 325 MG TABLET PO SCH (09:41)
[2021-01-18] MEDS: METOPROLOL TARTRATE 25 MG TABLET PO SCH ×2 (09:41→21:00)
[2021-01-18] MEDS: POTASSIUM CHLORIDE 20 MEQ TABLET PO SCH (09:42)
[2021-01-18] MEDS: DOCUSATE SODIUM 100 MG CAPSULE PO SCH (09:42)
[2021-01-18] MEDS: calcitrioL 0.25 MCG CAPSULE PO SCH (09:42)
[2021-01-18] MEDS: PANTOPRAZOLE 40 MG TABLET PO SCH (09:43)
[2021-01-18] MEDS: MONTELUKAST 10 MG TABLET PO SCH (09:43)
[2021-01-18] MEDS: ROSUVASTATIN 20 MG TABLET PO SCH (20:58)
[2021-01-19] MEDS: ALBUTEROL 2.5 MG/3 ML NEB RESP TX PRN (00:29)
[2021-01-19] MEDS: ACETAMINOPHEN 325 MG TABLET PO PRN ×2 (05:15→17:03)
[2021-01-19] MEDS: LEVOTHYROXINE 50 MCG TABLET PO SCH (05:34)
[2021-01-19 06:11] LABS: Basophils % 0.4 % (0.0-0.8); Eosinophils # 0.2 10*3/uL (0.0-0.87); Eosinophils % 3.4 % (0.00-10.9); Hematocrit 22.8 VOL% (35.7-47.0); Hemoglobin 7.4 GM/DL (12.0-16.0); Immature Granulocytes % 0.7 %; Immature Granulocytes Absolute 0.04 #; Lymphocytes # 2.1 10*3/uL (1.4-4.0); Lymphocytes % 37.1 % (21.3-54.2); Mean Corpuscular HGB Conc 32.5 GM/DL (32-36); Mean Corpuscular Volume 90.1 FL (87-102); Mean Platelet Volume 9.9 FL (9.6-12.0); Monocytes % 7.8 % (1.7-12.7); Neutrophils % 50.6 % (38.7-73.9); Platelet Count 156 T/CUMM (130-400); Red Blood Count 2.53 MC/CUMM (3.8-5.5); Red Cell Distribution Width 13.2 % (9.3-17.3); White Blood Count 5.7 T/CUMM (4-12)
[2021-01-19 06:48] LABS: Calcium 7.6 MG/DL (8.5-10.1); Osmolality,Calculated 289.1 MOS/KG (273-304); Potassium 4.2 MMOL/L (3.5-5.1)
[2021-01-19] MEDS: INSULIN REGULAR 100 UNIT/ML SUBCUT SCH ×4 (07:59→21:37)
[2021-01-19] MEDS: ASCORBIC ACID 500 MG TABLET PO SCH ×2 (08:51→22:49)
[2021-01-19] MEDS: PANTOPRAZOLE 40 MG TABLET PO SCH (08:51)
[2021-01-19] MEDS: DOCUSATE SODIUM 100 MG CAPSULE PO SCH (08:51)
[2021-01-19] MEDS: MONTELUKAST 10 MG TABLET PO SCH (08:51)
[2021-01-19] MEDS: POTASSIUM CHLORIDE 20 MEQ TABLET PO SCH (08:51)
[2021-01-19] MEDS: calcitrioL 0.25 MCG CAPSULE PO SCH (08:51)
[2021-01-19] MEDS: FERROUS SULFATE 325 MG TABLET PO SCH (08:51)
[2021-01-19] MEDS: glyBURIDE 5 MG TABLET PO SCH ×2 (08:52→22:48)
[2021-01-19] MEDS: APIXABAN 2.5 MG TABLET PO SCH (08:52)
[2021-01-19] MEDS: METOPROLOL TARTRATE 25 MG TABLET PO SCH (08:52)
[2021-01-19] MEDS ORDERED: METOPROLOL TARTRATE 25 MG TABLET PO SCH (15:30)
[2021-01-19] MEDS ORDERED: NITROGLYCERIN SL 0.4 MG TABLET SL ONE (18:37)
[2021-01-19] MEDS ORDERED: ATROPINE 1 MG/10 ML SYRINGE ONE (18:55)
[2021-01-19] MEDS ORDERED: ATROPINE 1 MG/10 ML SYRINGE IV STA (19:01)
[2021-01-19 19:10] LABS: Basophils % 0.1 % (0.0-0.8); Eosinophils # 0.1 10*3/uL (0.0-0.87); Eosinophils % 0.6 % (0.00-10.9); Hemoglobin 8.6 GM/DL (12.0-16.0); Immature Granulocytes % 0.6 %; Immature Granulocytes Absolute 0.14 #; Lymphocytes # 5.8 10*3/uL (1.4-4.0); Lymphocytes % 26.7 % (21.3-54.2); Mean Corpuscular HGB Conc 30.7 GM/DL (32-36); Mean Corpuscular Volume 95.9 FL (87-102); Mean Platelet Volume 10.2 FL (9.6-12.0); Monocytes % 3.5 % (1.7-12.7); Neutrophils % 68.5 % (38.7-73.9); Platelet Count 216 T/CUMM (130-400); Red Blood Count 2.92 MC/CUMM (3.8-5.5); Red Cell Distribution Width 13.3 % (9.3-17.3); White Blood Count 21.7 T/CUMM (4-12)
[2021-01-19] MEDS ORDERED: EPINEPHrine 1 MG/ML VIAL ONE (19:12)
[2021-01-19] MEDS ORDERED: EPINEPHrine 1 MG/10 ML SYRINGE ONE (19:12)
[2021-01-19 19:32] LABS: CKMB % 5.6 %
[2021-01-19 19:35] LABS: Troponin I 0.05 NG/ML (0.00-0.045)
[2021-01-19] MEDS ORDERED: fentaNYL 100 MCG/2 ML VIAL ONE (19:36)
[2021-01-19] MEDS ORDERED: MIDAZOLAM 2 MG/2 ML VIAL ONE (19:36)
[2021-01-19] MEDS ORDERED: LIDOCAINE 1% 20 ML VIAL ONE ×3 (19:37→20:16)
[2021-01-19 20:47] LABS: Band Neutrophils 2 % (0-10); Lymphocytes 22 % (20-55)
[2021-01-19 20:48] LABS: Macrocytosis Slight; Platelet Estimate Normal; Segmented Neutrophils 3 % (50-85); Total Cells Counted 28
[2021-01-19] MEDS ORDERED: LACTATED RINGERS 1,000 ML IV SCH (21:44)
[2021-01-19] MEDS: ROSUVASTATIN 20 MG TABLET PO SCH (22:48)
[2021-01-19] MEDS: CLORAZEPATE 3.75 MG TABLET PO PRN (22:49)
[2021-01-20] MEDS: APIXABAN 2.5 MG TABLET PO SCH
[2021-01-20] MEDS: hydrALAZINE 25 MG TABLET PO SCH ×3 (06:21→21:51)
[2021-01-20 06:27] LABS: Alanine Aminotransferase 88 U/L (13-56); Albumin 2.5 G/DL (3.4-5.0); Alkaline Phosphatase 151 U/L (45-117); Aspartate Amino Transferase 102 U/L (0-37); Bilirubin,Total < 0.39 MG/DL (0.2-1.0); Blood Urea Nitrogen 61 MG/DL (7-18); Calcium 8.1 MG/DL (8.5-10.1); Carbon Dioxide 20 MMOL/L (21-32); Estimated Glom Filtration Rate 23 ML/MIN; Glucose 263 MG/DL (74-106); Osmolality,Calculated 300.7 MOS/KG (273-304); Sodium 138 MMOL/L (136-145); Total Protein 5.8 G/DL (6.4-8.3)
[2021-01-20] MEDS: LEVOTHYROXINE 50 MCG TABLET PO SCH (07:01)
[2021-01-20 08:10] LABS: Basophils % 0.1 % (0.0-0.8); Eosinophils % 0.1 % (0.00-10.9); Hematocrit 22.6 VOL% (35.7-47.0); Hemoglobin 7.5 GM/DL (12.0-16.0); Immature Granulocytes % 0.6 %; Lymphocytes # 1.2 10*3/uL (1.4-4.0); Lymphocytes % 7.8 % (21.3-54.2); Mean Corpuscular HGB Conc 33.2 GM/DL (32-36); Monocytes % 4.6 % (1.7-12.7); Neutrophils % 86.8 % (38.7-73.9); Platelet Count 141 T/CUMM (130-400); Red Blood Count 2.51 MC/CUMM (3.8-5.5); Red Cell Distribution Width 13.4 % (9.3-17.3); White Blood Count 15.8 T/CUMM (4-12)
[2021-01-20] MEDS: POTASSIUM CHLORIDE 20 MEQ TABLET PO SCH (08:16)
[2021-01-20] MEDS: INSULIN REGULAR 100 UNIT/ML SUBCUT SCH ×4 (08:33→21:59)
[2021-01-20 08:44] LABS: CKMB % 4.6 %
[2021-01-20 08:53] LABS: Troponin I 5.44 NG/ML (0.00-0.045)
[2021-01-20] MEDS: glyBURIDE 5 MG TABLET PO SCH ×2 (09:13→21:51)
[2021-01-20] MEDS: MONTELUKAST 10 MG TABLET PO SCH (09:13)
[2021-01-20] MEDS: PANTOPRAZOLE 40 MG TABLET PO SCH (09:13)
[2021-01-20] MEDS: CLORAZEPATE 3.75 MG TABLET PO PRN ×2 (09:13→21:51)
[2021-01-20] MEDS: ASCORBIC ACID 500 MG TABLET PO SCH ×2 (09:14→21:51)
[2021-01-20] MEDS: FERROUS SULFATE 325 MG TABLET PO SCH (09:14)
[2021-01-20] MEDS: DOCUSATE SODIUM 100 MG CAPSULE PO SCH (09:14)
[2021-01-20] MEDS: calcitrioL 0.25 MCG CAPSULE PO SCH (09:15)
[2021-01-20] MEDS: ACETAMINOPHEN 325 MG TABLET PO PRN ×2 (09:21→21:59)
[2021-01-20] MEDS ORDERED: SODIUM CHLORIDE 0.9% 1,000 ML IV PRN (09:36)
[2021-01-20] MEDS: ROSUVASTATIN 20 MG TABLET PO SCH (21:50)
[2021-01-21 04:49] LABS: Basophils % 0.2 % (0.0-0.8); Eosinophils # 0.1 10*3/uL (0.0-0.87); Eosinophils % 0.3 % (0.00-10.9); Hematocrit 32.7 VOL% (35.7-47.0); Hemoglobin 10.4 GM/DL (12.0-16.0); Immature Granulocytes % 0.7 %; Immature Granulocytes Absolute 0.12 #; Lymphocytes # 2.1 10*3/uL (1.4-4.0); Lymphocytes % 11.6 % (21.3-54.2); Mean Corpuscular HGB Conc 31.8 GM/DL (32-36); Mean Corpuscular Volume 90.8 FL (87-102); Mean Platelet Volume 10.7 FL (9.6-12.0); Monocytes % 3.6 % (1.7-12.7); Neutrophils % 83.6 % (38.7-73.9); Platelet Count 137 T/CUMM (130-400); Red Cell Distribution Width 13.7 % (9.3-17.3); White Blood Count 17.8 T/CUMM (4-12)
[2021-01-21 05:09] LABS: Hypochromasia 1+; Microcytosis 1+
[2021-01-21 05:10] LABS: Calcium 8.7 MG/DL (8.5-10.1); Potassium 5.1 MMOL/L (3.5-5.1)
[2021-01-21] MEDS: ACETAMINOPHEN 325 MG TABLET PO PRN (05:27)
[2021-01-21] MEDS: LEVOTHYROXINE 50 MCG TABLET PO SCH (06:33)
[2021-01-21] MEDS: INSULIN REGULAR 100 UNIT/ML SUBCUT SCH ×4 (08:19→20:51)
[2021-01-21] MEDS: FERROUS SULFATE 325 MG TABLET PO SCH (08:33)
[2021-01-21] MEDS: ASCORBIC ACID 500 MG TABLET PO SCH ×2 (08:36→20:51)
[2021-01-21] MEDS: glyBURIDE 5 MG TABLET PO SCH ×2 (08:37→20:51)
[2021-01-21] MEDS: calcitrioL 0.25 MCG CAPSULE PO SCH (08:37)
[2021-01-21] MEDS: DOCUSATE SODIUM 100 MG CAPSULE PO SCH (08:37)
[2021-01-21] MEDS: MONTELUKAST 10 MG TABLET PO SCH (08:38)
[2021-01-21] MEDS: PANTOPRAZOLE 40 MG TABLET PO SCH (08:38)
[2021-01-21] MEDS: POTASSIUM CHLORIDE 20 MEQ TABLET PO SCH (08:43)
[2021-01-21] MEDS ORDERED: VANCOMYCIN INJ 1,000 MG in SODIUM CHLORIDE 0.9% 250 ML IV ONE (11:54)
[2021-01-21] MEDS ORDERED: VANCOMYCIN INJ 1,000 MG in SODIUM CHLORIDE 0.9% 250 ML IV SCH (12:00)
[2021-01-21] MEDS: MORPHINE 4 MG/1 ML VIAL IV PRN (20:40)
[2021-01-21] MEDS: ROSUVASTATIN 20 MG TABLET PO SCH (20:40)
[2021-01-22 04:03] LABS: Basophils % 0.1 % (0.0-0.8); Eosinophils # 0.1 10*3/uL (0.0-0.87); Eosinophils % 0.4 % (0.00-10.9); Hematocrit 30.6 VOL% (35.7-47.0); Hemoglobin 9.5 GM/DL (12.0-16.0); Immature Granulocytes % 0.8 %; Immature Granulocytes Absolute 0.16 #; Lymphocytes # 5.1 10*3/uL (1.4-4.0); Lymphocytes % 24.6 % (21.3-54.2); Mean Corpuscular Volume 93.9 FL (87-102); Neutrophils % 71.1 % (38.7-73.9); Platelet Count 149 T/CUMM (130-400); Red Blood Count 3.26 MC/CUMM (3.8-5.5); Red Cell Distribution Width 13.7 % (9.3-17.3); White Blood Count 20.8 T/CUMM (4-12)
[2021-01-22] MEDS ORDERED: DEXTROSE 50% 25 GM/50 ML VIAL IV ONE (04:15)
[2021-01-22] MEDS: DEXTROSE 50% 25 GM/50 ML VIAL IV PRN ×2 (04:16→06:21)
[2021-01-22 04:34] LABS: Atypical Lymphocytes Few; Eosinophils 1 % (0-10); Hypochromasia 1+; Lymphocytes 20 % (20-55); Microcytosis 1+; Segmented Neutrophils 74 % (50-85); Total Cells Counted 100
[2021-01-22 04:35] LABS: Platelet Estimate Adequate
[2021-01-22] MEDS ORDERED: SODIUM CHLORIDE 0.9% 1,000 ML IV PRN (06:00)
[2021-01-22] MEDS ORDERED: VANCOMYCIN INJ 500 MG in SODIUM CHLORIDE 0.9% 100 ML IV ONE (06:00)
[2021-01-22] MEDS ORDERED: VANCOMYCIN 500 MG VIAL IRRIG ONE (06:00)
[2021-01-22] MEDS ORDERED: diphenhydrAMINE CAP 25 MG CAPSULE PO ONE (06:00)
[2021-01-22] MEDS ORDERED: DIAZEPAM 5 MG TABLET PO ONE (06:00)
[2021-01-22] MEDS: LEVOTHYROXINE 50 MCG TABLET PO SCH ×2 (06:42→10:18)
[2021-01-22] MEDS ORDERED: DEXTROSE 5% NACL 0.45% 1,000 ML IV SCH (07:00)
[2021-01-22] MEDS: INSULIN REGULAR 100 UNIT/ML SUBCUT SCH ×4 (07:37→20:10)
[2021-01-22] MEDS ORDERED: propofoL 200 MG/20 ML VIAL IV ONE (08:34)
[2021-01-22] MEDS ORDERED: fentaNYL 100 MCG/2 ML VIAL ONE (08:34)
[2021-01-22] MEDS ORDERED: ETOMIDATE 40 MG/20 ML VIAL IV ONE (08:34)
[2021-01-22] MEDS ORDERED: LIDOCAINE 2% 5 ML VIAL ONE (08:34)
[2021-01-22] MEDS ORDERED: MIDAZOLAM 2 MG/2 ML VIAL ONE (08:35)
[2021-01-22] MEDS ORDERED: LACTATED RINGERS 1,000 ML IV SCH (09:00)
[2021-01-22] MEDS ORDERED: BUPIVACAINE MPF 0.25% 30 ML VIAL ONE (09:07)
[2021-01-22] MEDS: DEXTROSE 5% NACL 0.9% 1,000 ML IV SCH (10:07)
[2021-01-22] MEDS: DOCUSATE SODIUM 100 MG CAPSULE PO SCH (10:07)
[2021-01-22] MEDS: FERROUS SULFATE 325 MG TABLET PO SCH (10:07)
[2021-01-22] MEDS: POTASSIUM CHLORIDE 20 MEQ TABLET PO SCH (10:07)
[2021-01-22] MEDS: calcitrioL 0.25 MCG CAPSULE PO SCH (10:07)
[2021-01-22] MEDS: ASCORBIC ACID 500 MG TABLET PO SCH ×2 (10:08→20:10)
[2021-01-22] MEDS: metroNIDAZOLE INJ 500 MG in PREMIX 1 EACH IV SCH ×2 (10:17→16:28)
[2021-01-22] MEDS: PANTOPRAZOLE 40 MG TABLET PO SCH (10:17)
[2021-01-22] MEDS: MEROPENEM 500 MG in SODIUM CHLORIDE 0.9% 100 ML IV SCH (10:17)
[2021-01-22] MEDS: MONTELUKAST 10 MG TABLET PO SCH (10:17)
[2021-01-22] MEDS: INSULIN NPH 100 UNIT/ML SUBCUT SCH (18:27)
[2021-01-22] MEDS: ROSUVASTATIN 20 MG TABLET PO SCH (20:10)
[2021-01-23] MEDS: metroNIDAZOLE INJ 500 MG in PREMIX 1 EACH IV SCH ×3 (01:15→17:46)
[2021-01-23] MEDS: DEXTROSE 5% NACL 0.9% 1,000 ML IV SCH ×2 (01:15→16:30)
[2021-01-23 04:24] LABS: Basophils % 0.1 % (0.0-0.8); Eosinophils # 0.1 10*3/uL (0.0-0.87); Eosinophils % 1.5 % (0.00-10.9); Hematocrit 27.5 VOL% (35.7-47.0); Hemoglobin 8.6 GM/DL (12.0-16.0); Immature Granulocytes % 0.5 %; Immature Granulocytes Absolute 0.05 #; Lymphocytes % 10.6 % (21.3-54.2); Mean Corpuscular HGB Conc 31.3 GM/DL (32-36); Mean Corpuscular Volume 94.2 FL (87-102); Mean Platelet Volume 10.8 FL (9.6-12.0); Monocytes % 3.3 % (1.7-12.7); Platelet Count 122 T/CUMM (130-400); Red Blood Count 2.92 MC/CUMM (3.8-5.5); Red Cell Distribution Width 13.6 % (9.3-17.3); White Blood Count 9.4 T/CUMM (4-12)
[2021-01-23 04:42] LABS: Potassium 4.9 MMOL/L (3.5-5.1)
[2021-01-23] MEDS: LEVOTHYROXINE 50 MCG TABLET PO SCH (06:33)
[2021-01-23] MEDS: INSULIN REGULAR 100 UNIT/ML SUBCUT SCH ×4 (07:54→21:21)
[2021-01-23] MEDS: INSULIN NPH 100 UNIT/ML SUBCUT SCH ×2 (07:54→17:45)
[2021-01-23] MEDS: PANTOPRAZOLE 40 MG TABLET PO SCH (08:53)
[2021-01-23] MEDS: ASCORBIC ACID 500 MG TABLET PO SCH ×2 (08:53→21:02)
[2021-01-23] MEDS: MEROPENEM 500 MG in SODIUM CHLORIDE 0.9% 100 ML IV SCH (08:54)
[2021-01-23] MEDS: FERROUS SULFATE 325 MG TABLET PO SCH (08:54)
[2021-01-23] MEDS: calcitrioL 0.25 MCG CAPSULE PO SCH (08:54)
[2021-01-23] MEDS: MONTELUKAST 10 MG TABLET PO SCH (08:54)
[2021-01-23] MEDS: DOCUSATE SODIUM 100 MG CAPSULE PO SCH (08:54)
[2021-01-23] MEDS: POTASSIUM CHLORIDE 20 MEQ TABLET PO SCH (08:55)
[2021-01-23] MEDS: ROSUVASTATIN 20 MG TABLET PO SCH (21:02)
[2021-01-24] MEDS: metroNIDAZOLE INJ 500 MG in PREMIX 1 EACH IV SCH ×3 (02:30→17:52)
[2021-01-24 04:53] LABS: Basophils % 0.1 % (0.0-0.8); Eosinophils # 0.2 10*3/uL (0.0-0.87); Eosinophils % 2.2 % (0.00-10.9); Hematocrit 27.5 VOL% (35.7-47.0); Hemoglobin 8.6 GM/DL (12.0-16.0); Immature Granulocytes % 0.6 %; Immature Granulocytes Absolute 0.05 #; Lymphocytes # 1.1 10*3/uL (1.4-4.0); Lymphocytes % 12.8 % (21.3-54.2); Mean Corpuscular HGB Conc 31.3 GM/DL (32-36); Mean Corpuscular Volume 93.9 FL (87-102); Mean Platelet Volume 10.1 FL (9.6-12.0); Monocytes % 4.4 % (1.7-12.7); Neutrophils % 79.9 % (38.7-73.9); Platelet Count 132 T/CUMM (130-400); Red Blood Count 2.93 MC/CUMM (3.8-5.5); Red Cell Distribution Width 13.4 % (9.3-17.3); White Blood Count 8.7 T/CUMM (4-12)
[2021-01-24 05:11] LABS: Calcium 7.3 MG/DL (8.5-10.1); Osmolality,Calculated 292.8 MOS/KG (273-304); Potassium 5.4 MMOL/L (3.5-5.1)
[2021-01-24 05:14] LABS: Albumin 1.8 G/DL (3.4-5.0); Bilirubin,Total 1.1 MG/DL (0.2-1.0); Calcium 7.7 MG/DL (8.5-10.1); Osmolality,Calculated 287.2 MOS/KG (273-304); Potassium 5.3 MMOL/L (3.5-5.1); Total Protein 5.4 G/DL (5.0-7.5)
[2021-01-24] MEDS: LEVOTHYROXINE 50 MCG TABLET PO SCH (05:36)
[2021-01-24] MEDS: DEXTROSE 5% NACL 0.9% 1,000 ML IV SCH (07:54)
[2021-01-24] MEDS: INSULIN NPH 100 UNIT/ML SUBCUT SCH (07:55)
[2021-01-24] MEDS: INSULIN REGULAR 100 UNIT/ML SUBCUT SCH ×4 (07:55→20:11)
[2021-01-24] MEDS: MEROPENEM 500 MG in SODIUM CHLORIDE 0.9% 100 ML IV SCH ×2 (07:56→08:05)
[2021-01-24] MEDS: PANTOPRAZOLE 40 MG TABLET PO SCH (08:04)
[2021-01-24] MEDS: DOCUSATE SODIUM 100 MG CAPSULE PO SCH (08:04)
[2021-01-24] MEDS: FERROUS SULFATE 325 MG TABLET PO SCH (08:04)
[2021-01-24] MEDS: SODIUM HYPOCHLORITE 0.25% IRRIG 473 ML BOTTLE TOP SCH ×2 (08:04→20:11)
[2021-01-24] MEDS: POTASSIUM CHLORIDE 20 MEQ TABLET PO SCH (08:04)
[2021-01-24] MEDS: ASCORBIC ACID 500 MG TABLET PO SCH ×2 (08:05→20:11)
[2021-01-24] MEDS: calcitrioL 0.25 MCG CAPSULE PO SCH (08:05)
[2021-01-24] MEDS: MONTELUKAST 10 MG TABLET PO SCH (08:05)
[2021-01-24] MEDS: MORPHINE 4 MG/1 ML VIAL IV PRN (08:44)
[2021-01-24] MEDS ORDERED: SODIUM CHLORIDE 0.45% 1,000 ML IV SCH (11:30)
[2021-01-24] MEDS: ENOXAPARIN 30 MG/0.3 ML SYRINGE SUBCUT SCH (12:21)
[2021-01-24] MEDS: SODIUM CHLORIDE 0.9% 1,000 ML IV SCH ×2 (13:37→23:40)
[2021-01-24] MEDS: ACETAMINOPHEN 325 MG TABLET PO PRN (14:40)
[2021-01-24] MEDS: ROSUVASTATIN 20 MG TABLET PO SCH (20:11)
[2021-01-25] MEDS: metroNIDAZOLE INJ 500 MG in PREMIX 1 EACH IV SCH ×3 (00:10→16:28)
[2021-01-25 03:54] LABS: Eosinophils # 0.2 10*3/uL (0.0-0.87); Eosinophils % 2.4 % (0.00-10.9); Hematocrit 27.8 VOL% (35.7-47.0); Hemoglobin 8.7 GM/DL (12.0-16.0); Immature Granulocytes % 0.5 %; Immature Granulocytes Absolute 0.04 #; Lymphocytes % 12.2 % (21.3-54.2); Mean Corpuscular HGB Conc 31.3 GM/DL (32-36); Mean Platelet Volume 10.1 FL (9.6-12.0); Monocytes % 4.9 % (1.7-12.7); Platelet Count 128 T/CUMM (130-400); Red Blood Count 2.99 MC/CUMM (3.8-5.5); Red Cell Distribution Width 13.3 % (9.3-17.3); White Blood Count 7.9 T/CUMM (4-12)
[2021-01-25 04:21] LABS: Calcium 7.5 MG/DL (8.5-10.1); Osmolality,Calculated 292.7 MOS/KG (273-304); Potassium 5.3 MMOL/L (3.5-5.1)
[2021-01-25] MEDS: LEVOTHYROXINE 50 MCG TABLET PO SCH (06:04)
[2021-01-25] MEDS: calcitrioL 0.25 MCG CAPSULE PO SCH (08:05)
[2021-01-25] MEDS: ASCORBIC ACID 500 MG TABLET PO SCH ×2 (08:05→20:02)
[2021-01-25] MEDS: MEROPENEM 500 MG in SODIUM CHLORIDE 0.9% 100 ML IV SCH (08:05)
[2021-01-25] MEDS: FERROUS SULFATE 325 MG TABLET PO SCH (08:05)
[2021-01-25] MEDS: MONTELUKAST 10 MG TABLET PO SCH (08:06)
[2021-01-25] MEDS: PANTOPRAZOLE 40 MG TABLET PO SCH (08:06)
[2021-01-25] MEDS: DOCUSATE SODIUM 100 MG CAPSULE PO SCH (08:06)
[2021-01-25] MEDS: INSULIN REGULAR 100 UNIT/ML SUBCUT SCH ×4 (08:16→20:02)
[2021-01-25] MEDS: SODIUM HYPOCHLORITE 0.25% IRRIG 473 ML BOTTLE TOP SCH ×2 (08:16→20:02)
[2021-01-25] MEDS ORDERED: SODIUM CHLORIDE 0.45% 1,000 ML IV SCH (11:00)
[2021-01-25] MEDS: ENOXAPARIN 30 MG/0.3 ML SYRINGE SUBCUT SCH (12:30)
[2021-01-25] MEDS: SODIUM CHLORIDE 0.9% 1,000 ML IV SCH (16:33)
[2021-01-25] MEDS: ROSUVASTATIN 20 MG TABLET PO SCH (20:02)
[2021-01-26] MEDS: metroNIDAZOLE INJ 500 MG in PREMIX 1 EACH IV SCH ×2 (01:15→09:38)
[2021-01-26 03:58] LABS: Basophils % 0.1 % (0.0-0.8); Eosinophils # 0.2 10*3/uL (0.0-0.87); Eosinophils % 2.1 % (0.00-10.9); Hematocrit 28.5 VOL% (35.7-47.0); Hemoglobin 8.8 GM/DL (12.0-16.0); Immature Granulocytes % 0.7 %; Immature Granulocytes Absolute 0.06 #; Lymphocytes # 0.8 10*3/uL (1.4-4.0); Lymphocytes % 9.9 % (21.3-54.2); Mean Corpuscular HGB Conc 30.9 GM/DL (32-36); Mean Corpuscular Volume 92.5 FL (87-102); Mean Platelet Volume 9.6 FL (9.6-12.0); Monocytes % 4.9 % (1.7-12.7); Neutrophils % 82.3 % (38.7-73.9); Platelet Count 153 T/CUMM (130-400); Red Blood Count 3.08 MC/CUMM (3.8-5.5); Red Cell Distribution Width 13.3 % (9.3-17.3); White Blood Count 8.5 T/CUMM (4-12)
[2021-01-26 04:13] LABS: Calcium 7.5 MG/DL (8.5-10.1); Osmolality,Calculated 287.8 MOS/KG (273-304); Potassium 5.4 MMOL/L (3.5-5.1)
[2021-01-26 04:22] LABS: Troponin I 0.247 NG/ML (0.00-0.045)
[2021-01-26] MEDS: SODIUM CHLORIDE 0.9% 1,000 ML IV SCH ×3 (04:50→16:37)
[2021-01-26] MEDS: LEVOTHYROXINE 50 MCG TABLET PO SCH (06:26)
[2021-01-26] MEDS: INSULIN REGULAR 100 UNIT/ML SUBCUT SCH ×4 (07:45→21:10)
[2021-01-26] MEDS: PANTOPRAZOLE 40 MG TABLET PO SCH (09:14)
[2021-01-26] MEDS: DOCUSATE SODIUM 100 MG CAPSULE PO SCH (09:14)
[2021-01-26] MEDS: FERROUS SULFATE 325 MG TABLET PO SCH (09:14)
[2021-01-26] MEDS: ASCORBIC ACID 500 MG TABLET PO SCH ×2 (09:15→21:09)
[2021-01-26] MEDS: MONTELUKAST 10 MG TABLET PO SCH (09:15)
[2021-01-26] MEDS: calcitrioL 0.25 MCG CAPSULE PO SCH (09:15)
[2021-01-26] MEDS: hydrALAZINE 20 MG/1 ML VIAL IV PRN (09:38)
[2021-01-26] MEDS: SODIUM HYPOCHLORITE 0.25% IRRIG 473 ML BOTTLE TOP SCH ×2 (09:41→21:10)
[2021-01-26] MEDS ORDERED: VANCOMYCIN 500 MG VIAL IRRIG ONE (10:22)
[2021-01-26] MEDS ORDERED: DIAZEPAM 5 MG TABLET PO ONE (10:22)
[2021-01-26] MEDS ORDERED: VANCOMYCIN INJ 1,000 MG in SODIUM CHLORIDE 0.9% 250 ML IV ONE (10:22)
[2021-01-26] MEDS ORDERED: diphenhydrAMINE CAP 25 MG CAPSULE PO ONE (10:22)
[2021-01-26] MEDS ORDERED: LIDOCAINE 1% 20 ML VIAL ONE (14:40)
[2021-01-26] MEDS ORDERED: TISSUE ADHESIVE 1 EACH APPLICATOR TOP ONE (14:40)
[2021-01-26] MEDS ORDERED: fentaNYL 100 MCG/2 ML VIAL ONE (14:41)
[2021-01-26] MEDS ORDERED: MIDAZOLAM 2 MG/2 ML VIAL ONE (14:41)
[2021-01-26] MEDS ORDERED: VANCOMYCIN 500 MG VIAL ONE (14:44)
[2021-01-26] MEDS: ROSUVASTATIN 20 MG TABLET PO SCH (21:09)
[2021-01-27] MEDS: LEVOTHYROXINE 50 MCG TABLET PO SCH (06:17)
[2021-01-27 06:39] LABS: Basophils % 0.1 % (0.0-0.8); Eosinophils # 0.3 10*3/uL (0.0-0.87); Eosinophils % 3.3 % (0.00-10.9); Hematocrit 27.2 VOL% (35.7-47.0); Hemoglobin 8.8 GM/DL (12.0-16.0); Immature Granulocytes % 0.7 %; Immature Granulocytes Absolute 0.05 #; Lymphocytes # 0.8 10*3/uL (1.4-4.0); Lymphocytes % 10.7 % (21.3-54.2); Mean Corpuscular HGB Conc 32.4 GM/DL (32-36); Mean Corpuscular Volume 90.7 FL (87-102); Mean Platelet Volume 9.7 FL (9.6-12.0); Monocytes % 5.3 % (1.7-12.7); Neutrophils % 79.9 % (38.7-73.9); Platelet Count 171 T/CUMM (130-400); Red Cell Distribution Width 13.5 % (9.3-17.3); White Blood Count 7.5 T/CUMM (4-12)
[2021-01-27 07:01] LABS: Calcium 7.9 MG/DL (8.5-10.1); Osmolality,Calculated 283.8 MOS/KG (273-304); Potassium 5.4 MMOL/L (3.5-5.1)
[2021-01-27] MEDS: INSULIN REGULAR 100 UNIT/ML SUBCUT SCH ×4 (07:22→21:44)
[2021-01-27] MEDS: hydrALAZINE 20 MG/1 ML VIAL IV PRN ×2 (07:25→15:34)
[2021-01-27] MEDS ORDERED: SODIUM POLYSTYRENE SULFATE 15 GM/60 ML BOTTLE PO STA (09:30)
[2021-01-27] MEDS: ASCORBIC ACID 500 MG TABLET PO SCH ×2 (09:43→21:44)
[2021-01-27] MEDS: MONTELUKAST 10 MG TABLET PO SCH (09:43)
[2021-01-27] MEDS: DOCUSATE SODIUM 100 MG CAPSULE PO SCH (09:43)
[2021-01-27] MEDS: PANTOPRAZOLE 40 MG TABLET PO SCH (09:43)
[2021-01-27] MEDS: FERROUS SULFATE 325 MG TABLET PO SCH (09:43)
[2021-01-27] MEDS: calcitrioL 0.25 MCG CAPSULE PO SCH (09:43)
[2021-01-27] MEDS: ISOSORBIDE MONONITRATE 30 MG TABLET PO SCH (10:11)
[2021-01-27] MEDS: carvediloL 6.25 MG TABLET PO SCH ×2 (10:11→21:45)
[2021-01-27] MEDS: SODIUM HYPOCHLORITE 0.25% IRRIG 473 ML BOTTLE TOP SCH ×2 (11:46→21:44)
[2021-01-27] MEDS: ROSUVASTATIN 20 MG TABLET PO SCH (21:44)
[2021-01-28 05:20] LABS: Basophils % 0.2 % (0.0-0.8); Eosinophils # 0.2 10*3/uL (0.0-0.87); Eosinophils % 3.1 % (0.00-10.9); Hematocrit 24.7 VOL% (35.7-47.0); Hemoglobin 7.8 GM/DL (12.0-16.0); Immature Granulocytes % 0.7 %; Immature Granulocytes Absolute 0.04 #; Lymphocytes # 0.8 10*3/uL (1.4-4.0); Lymphocytes % 13.5 % (21.3-54.2); Mean Corpuscular HGB Conc 31.6 GM/DL (32-36); Mean Corpuscular Volume 90.5 FL (87-102); Mean Platelet Volume 9.7 FL (9.6-12.0); Monocytes % 7.6 % (1.7-12.7); Neutrophils % 74.9 % (38.7-73.9); Platelet Count 161 T/CUMM (130-400); Red Blood Count 2.73 MC/CUMM (3.8-5.5); Red Cell Distribution Width 13.3 % (9.3-17.3); White Blood Count 6.2 T/CUMM (4-12)
[2021-01-28 05:43] LABS: Calcium 7.5 MG/DL (8.5-10.1); Osmolality,Calculated 295.1 MOS/KG (273-304); Potassium 5.2 MMOL/L (3.5-5.1)
[2021-01-28] MEDS: LEVOTHYROXINE 50 MCG TABLET PO SCH (05:51)
[2021-01-28] MEDS: INSULIN REGULAR 100 UNIT/ML SUBCUT SCH ×4 (09:52→21:36)
[2021-01-28] MEDS: MONTELUKAST 10 MG TABLET PO SCH (09:53)
[2021-01-28] MEDS: PANTOPRAZOLE 40 MG TABLET PO SCH (09:53)
[2021-01-28] MEDS: DOCUSATE SODIUM 100 MG CAPSULE PO SCH (09:53)
[2021-01-28] MEDS: calcitrioL 0.25 MCG CAPSULE PO SCH (09:53)
[2021-01-28] MEDS: carvediloL 12.5 MG TABLET PO SCH ×2 (09:53→21:35)
[2021-01-28] MEDS: SODIUM HYPOCHLORITE 0.25% IRRIG 473 ML BOTTLE TOP SCH ×2 (09:54→21:36)
[2021-01-28] MEDS: ASCORBIC ACID 500 MG TABLET PO SCH ×2 (09:54→21:35)
[2021-01-28] MEDS: ISOSORBIDE MONONITRATE 30 MG TABLET PO SCH (09:54)
[2021-01-28] MEDS: FERROUS SULFATE 325 MG TABLET PO SCH (09:54)
[2021-01-28] MEDS: FUROSEMIDE 40 MG/4 ML VIAL IV SCH (09:57)
[2021-01-28] MEDS ORDERED: SODIUM POLYSTYRENE SULFATE 15 GM/60 ML BOTTLE PO STA (10:43)
[2021-01-28] MEDS: ROSUVASTATIN 20 MG TABLET PO SCH (21:35)
[2021-01-29 06:13] LABS: Basophils % 0.2 % (0.0-0.8); Eosinophils # 0.3 10*3/uL (0.0-0.87); Eosinophils % 4.5 % (0.00-10.9); Hematocrit 24.7 VOL% (35.7-47.0); Hemoglobin 7.8 GM/DL (12.0-16.0); Immature Granulocytes Absolute 0.06 #; Lymphocytes # 0.8 10*3/uL (1.4-4.0); Lymphocytes % 13.1 % (21.3-54.2); Mean Corpuscular HGB Conc 31.6 GM/DL (32-36); Mean Corpuscular Volume 91.1 FL (87-102); Mean Platelet Volume 9.6 FL (9.6-12.0); Monocytes % 6.5 % (1.7-12.7); Neutrophils % 74.7 % (38.7-73.9); Platelet Count 153 T/CUMM (130-400); Red Blood Count 2.71 MC/CUMM (3.8-5.5); Red Cell Distribution Width 13.4 % (9.3-17.3); White Blood Count 6.3 T/CUMM (4-12)
[2021-01-29] MEDS: LEVOTHYROXINE 50 MCG TABLET PO SCH (06:25)
[2021-01-29 06:30] LABS: Calcium 7.7 MG/DL (8.5-10.1); Osmolality,Calculated 293.3 MOS/KG (273-304); Potassium 4.4 MMOL/L (3.5-5.1)
[2021-01-29 08:32] LABS: Basophils % 0.2 % (0.0-0.8); Eosinophils # 0.3 10*3/uL (0.0-0.87); Eosinophils % 3.8 % (0.00-10.9); Hematocrit 25.1 VOL% (35.7-47.0); Hemoglobin 7.9 GM/DL (12.0-16.0); Immature Granulocytes % 0.9 %; Immature Granulocytes Absolute 0.06 #; Lymphocytes # 0.9 10*3/uL (1.4-4.0); Lymphocytes % 13.8 % (21.3-54.2); Mean Corpuscular HGB Conc 31.5 GM/DL (32-36); Mean Corpuscular Volume 91.3 FL (87-102); Mean Platelet Volume 9.3 FL (9.6-12.0); Monocytes % 6.2 % (1.7-12.7); Neutrophils % 75.1 % (38.7-73.9); Platelet Count 163 T/CUMM (130-400); Red Blood Count 2.75 MC/CUMM (3.8-5.5); Red Cell Distribution Width 13.3 % (9.3-17.3); White Blood Count 6.6 T/CUMM (4-12)
[2021-01-29] MEDS: INSULIN REGULAR 100 UNIT/ML SUBCUT SCH ×4 (08:41→20:23)
[2021-01-29 08:56] LABS: % Iron Saturation 14.7 % (18-50)
[2021-01-29 09:38] LABS: Sedimentation Rate-Westergren 87 MM/HR (0-30)
[2021-01-29] MEDS: DOCUSATE SODIUM 100 MG CAPSULE PO SCH (09:50)
[2021-01-29] MEDS: MONTELUKAST 10 MG TABLET PO SCH (09:50)
[2021-01-29] MEDS: ASCORBIC ACID 500 MG TABLET PO SCH ×2 (09:50→20:27)
[2021-01-29] MEDS: ISOSORBIDE MONONITRATE 30 MG TABLET PO SCH (09:51)
[2021-01-29] MEDS: PANTOPRAZOLE 40 MG TABLET PO SCH (09:51)
[2021-01-29] MEDS: calcitrioL 0.25 MCG CAPSULE PO SCH (09:51)
[2021-01-29] MEDS: FERROUS SULFATE 325 MG TABLET PO SCH (09:52)
[2021-01-29] MEDS: SODIUM HYPOCHLORITE 0.25% IRRIG 473 ML BOTTLE TOP SCH ×2 (09:52→20:27)
[2021-01-29] MEDS: FUROSEMIDE 40 MG/4 ML VIAL IV SCH (09:54)
[2021-01-29] MEDS: carvediloL 25 MG TABLET PO SCH ×2 (10:04→20:27)
[2021-01-29 14:32] LABS: Vitamin B12 376 PG/ML (211-911)
[2021-01-29] MEDS: ROSUVASTATIN 20 MG TABLET PO SCH (20:24)
[2021-01-29] MEDS: AMIODARONE 200 MG TABLET PO SCH (20:24)
[2021-01-30] MEDS: LEVOTHYROXINE 50 MCG TABLET PO SCH (06:33)
[2021-01-30 06:52] LABS: Basophils % 0.2 % (0.0-0.8); Eosinophils # 0.2 10*3/uL (0.0-0.87); Eosinophils % 3.3 % (0.00-10.9); Hemoglobin 7.9 GM/DL (12.0-16.0); Immature Granulocytes % 0.7 %; Immature Granulocytes Absolute 0.04 #; Lymphocytes % 16.7 % (21.3-54.2); Mean Corpuscular HGB Conc 31.6 GM/DL (32-36); Mean Corpuscular Volume 90.9 FL (87-102); Mean Platelet Volume 9.6 FL (9.6-12.0); Monocytes % 6.4 % (1.7-12.7); Neutrophils % 72.7 % (38.7-73.9); Platelet Count 165 T/CUMM (130-400); Red Blood Count 2.75 MC/CUMM (3.8-5.5); Red Cell Distribution Width 13.1 % (9.3-17.3); White Blood Count 5.8 T/CUMM (4-12)
[2021-01-30 07:12] LABS: Folate 13.5 NG/ML (5.38-24.0)
[2021-01-30 07:28] LABS: Calcium 7.6 MG/DL (8.5-10.1); Osmolality,Calculated 296.1 MOS/KG (273-304); Potassium 3.8 MMOL/L (3.5-5.1)
[2021-01-30] MEDS: INSULIN REGULAR 100 UNIT/ML SUBCUT SCH ×2 (08:10→13:07)
[2021-01-30 08:41] LABS: Hemoglobin A1 (Alkaline) 97.7 % (96.5-98.5); Hemoglobin A2 (Alkaline) 2.3 % (1.5-3.5)
[2021-01-30] MEDS: DOCUSATE SODIUM 100 MG CAPSULE PO SCH (08:52)
[2021-01-30] MEDS: carvediloL 25 MG TABLET PO SCH (08:52)
[2021-01-30] MEDS: ISOSORBIDE MONONITRATE 30 MG TABLET PO SCH (08:53)
[2021-01-30] MEDS: AMIODARONE 200 MG TABLET PO SCH (08:53)
[2021-01-30] MEDS: calcitrioL 0.25 MCG CAPSULE PO SCH (08:53)
[2021-01-30] MEDS: PANTOPRAZOLE 40 MG TABLET PO SCH (08:53)
[2021-01-30] MEDS: MONTELUKAST 10 MG TABLET PO SCH (08:53)
[2021-01-30] MEDS: ASCORBIC ACID 500 MG TABLET PO SCH (08:53)
[2021-01-30] MEDS: FERROUS SULFATE 325 MG TABLET PO SCH (08:53)
[2021-01-30] MEDS: FUROSEMIDE 40 MG/4 ML VIAL IV SCH (08:55)
[2021-01-30] MEDS: ALBUTEROL 2.5 MG/3 ML NEB RESP TX PRN (09:16)
[2021-01-30] MEDS: SODIUM HYPOCHLORITE 0.25% IRRIG 473 ML BOTTLE TOP SCH (10:12)
[2021-01-30 12:01] VITALS: BP 153/71
[2021-01-30] MEDS ORDERED: FERROUS SULFATE 325 MG TABLET PO SCH (21:00)
== END 2021-01-30 13:50 | DRG 242 ==
LOC: N.ED 10:54 → N.EDINP 10:54 → N.TELES 17:51 → N.ICU 01-19 19:05 → N.TELEN 01-26 16:31
PROVIDERS: ADMIT Internal Medicine Cardiovascular Disease; ATTEND Internal Medicine Cardiovascular Disease